=== PATIENT | male | born 1980 | race African-American/Black ===

== ENCOUNTER 2017-02-12 21:21 | Inpatient (IN) | payer SELFPAY ==
[~2017-02-12] VITALS: Ht 188 cm; Wt 84.0 kg
[~2017-02-12 21:21] MED LIST: NAPR550 PO; Z.0.NO CURRENT MEDS
[2017-02-12 21:26] VITALS: BP 163/103; PULSE 93; RESP 15; TEMP 97.3; O2SAT 96
--- NOTE | 2017-02-12 22:19 | PD ---
Physical Exam Date Seen by Provider: Feb 12, 2017 Time Seen by Provider: 22:17 Narrative 36 yo male here for left ankle and wrist pain after fall at football. Per patient pain is more severe on the left ankle and twisted. Trying to jump to get a ball fell and twisted ankle. No prior injuries. pain is 10/10. Cannot walk on it. Happened an hour ago. No other injuries. No head injury. Vitals sign stable. Patient awaiting bed placement. Data Data Last Documented VS Vital Signs Date Time Temp Pulse Resp B/P Pulse Ox O2 Delivery O2 Flow Rate FiO2 02/12/17 21:26 97.3 93 15 163/103 96 Room Air [facility] Medical Record Reviewed: Yes Supervised Visit with MARYCRUZ: No Scripts No Active Prescriptions or Reported Meds Donnie Streeter Feb 12, 2017 22:19
--- NOTE | 2017-02-12 22:52 | PD ---
HPI Chief Complaint: Fall Time Seen by Provider: 22:47 Travel History International Travel<30 days: No Contact w/Intl Traveler<30days: No Traveled to known affect area: No History of Present Illness HPI 36-year-old black male right-hand dominant presents emergency Department complains of left hand and ankle pain after an injury playing football this evening. He states that he has been drinking alcohol and was out playing with friends. He states that he jumped up for a ball but landed down on a rock twisting his left ankle causing him to fall onto his left hand. He states the pain is severe. Rates it a 10/10 and unable to bear weight. The patient denies any injury to his head, neck or back. No numbness or tingling. The injury occurred approximately one hour prior to arrival. [facility] Past Medical History Asthma: Yes Diabetes: Yes Patient Takes Glucophage: No Diminished Hearing: No Tetanus Vaccination: < 5 Years Past Surgical History Narrative Surgical Appendectomy Social History Alcohol Use: Yes (RARE) Tobacco Use: Yes (1/2PPD) Substance Use: Yes (MARIJUANA) Allergies-Medications (Allergen,Severity, Reaction): Coded Allergies: No Known Allergies (Verified , 02/12/17) Reported Meds & Prescriptions Reported Meds & Active Scripts Active No Active Prescriptions or Reported Medications Review of Systems Except as stated in HPI: all other systems reviewed are Neg General / Constitutional: No: Fever Eyes: No: Diploplia, Blurred Vision HENT: No: Headaches, Sore Throat, Neck Stiffness, Neck Pain Cardiovascular: No: Chest Pain or Discomfort, Palpitations Respiratory: No: Cough, Shortness of Breath Gastrointestinal: No: Nausea, Vomiting, Abdominal Pain Musculoskeletal: Positive: Arthralgias, Limited ROM, Edema, Pain Physical Exam Narrative GENERAL: Well-developed, well-nourished in no apparent distress. Nontoxic appearing. Smells of EtOH and appears intoxicated. HEAD: Normocephalic, atraumatic. EYES: Pupils equal round and reactive. Extraocular motions intact. No scleral icterus. No injection or drainage. ENT: Nose clear. Throat without erythema, tonsillar hypertrophy or exudate. Uvula midline. Airway patent. NECK: Trachea midline. Supple, nontender, moves head freely. No central bony tenderness or spasm. CARDIOVASCULAR: Regular rate and rhythm without murmurs, gallops, or rubs. RESPIRATORY: Clear to auscultation. Breath sounds equal bilaterally. No wheezes , rales, or rhonchi. GASTROINTESTINAL: Abdomen soft, non-tender, nondistended. No hepato-splenomegaly , or palpable masses. No guarding. EXTREMITIES: Examination of the right upper extremity is unremarkable. Examination of the left upper extremity reveals pain in the thenar eminence up into the thumb and index finger. There is no obvious deformity. He has good range of motion due to pain. He has intact gross sensation. There is no pain in the middle, ring and little finger. No pain in the wrist, elbow or shoulder. The right lower extremity is unremarkable. The left lower extremity reveals moderate swelling of the ankle with pain on both the medial lateral malleolus. No pain in the heel or Achilles. No pain in the forefoot or toes. He has intact sensation. The skin is intact.. BACK: Nontender without deformity. No flank tenderness. NEUROLOGICAL: Awake, alert and oriented x 3 .Cranial nerves grossly intact. Motor and sensory grossly within normal limits. Normal speech. Data Data Last Documented VS Vital Signs Date Time Temp Pulse Resp B/P Pulse Ox O2 Delivery O2 Flow Rate FiO2 02/12/17 21:26 97.3 93 15 163/103 96 Room Air Orders Ankle, Complete ([id number]) (02/12/17 22:44) Hand, Complete ([id number]) (02/12/17 22:44) Ice/Cold Pack (02/12/17 22:44) Iv Access Insert/Monitor (02/12/17 23:21) Sodium Chlor 0.9% 1000 Ml Inj (Ns 1000 M (02/12/17 23:30) Hydromorphone Pf Inj (Dilaudid Pf Inj) (02/12/17 23:30) Ondansetron Inj (Zofran Inj) (02/12/17 23:30) Ice/Cold Pack (02/12/17 23:21) Splint Or Brace Apply/Monitor (02/12/17 23:21) Complete Blood Count With Diff (02/12/17 23:35) Comprehensive Metabolic Panel (02/12/17 23:35) Prothrombin Time / Inr (Pt) (02/12/17 23:35) Act Partial Throm Time (Ptt) (02/12/17 23:35) Urinalysis - C+S If Indicated (02/12/17 23:35) Type And Screen (02/12/17 23:35) MDM Medical Decision Making Medical Screen Exam Complete: Yes Emergency Medical Condition: Yes Medical Record Reviewed: Yes Interpretation(s) Last 24 hours Impressions Hand X-Ray 02/12/172243 Signed Impressions: Service Date/Time: Sunday, February 12, 2017 23:01 - CONCLUSION: Intact left hand. Gregor Everett MD Ankle X-Ray 02/12/172243 Signed Impressions: Service Date/Time: Sunday, February 12, 2017 23:02 - CONCLUSION: Laterally displaced bimalleolar fractures and with lateral subluxation of the tibiotalar joint. Gregor Everett MD Differential Diagnosis MDM: High Differential diagnoses: Fracture, sprain, strain, dislocation, contusion, neurovascular injury Narrative Course IV access is obtained. Patient's given Dilaudid 1 mg IV, Zofran 4 mg IV. Patient is placed in a posterior sugar tong splint. The case has been discussed with Dr. ACHARYA who has agreed to admit the patient. We will consult Dr. De Anda The case has been discussed with Dr. De Anda. Diagnosis Primary Impression: left the malleolus fracture with widened mortise with distal fibula FX Additional Impression: left hand sprain Scripts No Active Prescriptions or Reported Meds Condition: Emanuel Krishnamurthy Feb 12, 2017 22:52
--- NOTE | 2017-02-12 23:08 | RADRPT ---
EXAM DATE/TIME: 02/12/2017 23:01 [facility] COMPARISON: No previous studies available for comparison. INDICATIONS : Patient was playing football and landed on left hand wrong. Pain through entire left hand. MEDICAL HISTORY : None. SURGICAL HISTORY : None. ENCOUNTER: Initial ACUITY: 1 day PAIN SCORE: 4/10 LOCATION: Left Hand FINDINGS: Three view examination of the left hand demonstrates no soft tissue swelling, dislocation, or fractur e. The carpal bones appear intact. The interphalangeal and metacarpophalangeal joints are intact. Bony mineralization is normal. CONCLUSION: Intact left hand. Gregor Everett MD on February 12, 2017 at 23:06 Board Certified Radiologist. This report was verified electronically.
--- NOTE | 2017-02-12 23:17 | RADRPT ---
EXAM DATE/TIME: 02/12/2017 23:02 [facility] COMPARISON: No previous studies available for comparison. INDICATIONS : Left ankle pain after fall playing football today MEDICAL HISTORY : None. SURGICAL HISTORY : None. ENCOUNTER: Initial ACUITY: 1 day PAIN SCORE: 10/10 LOCATION: Left entire ankle FINDINGS: There is a mildly comminuted, 3 mm laterally displaced fracture of the distal fibula approximately 2 cm above the level of the ankle joint. There is a fracture of the medial malleolus of the distal tibia with about 5 mm of lateral displaceme nt. The fracture is about 4 mm as well. The medial malleolus fracture fragment stays with t he talus. This results in lateral subluxation of the rest of the tibiotalar joint. CONCLUSION: Laterally displaced bimalleolar fractures and with lateral subluxation of the tibiotalar joint. Gregor Everett MD on February 12, 2017 at 23:14 Board Certified Radiologist. This report was verified electronically.
[2017-02-12] MEDS ORDERED: ONDANSETRON HCL 4 MG/2 ML VIAL IV PUSH ONE (23:30)
[2017-02-12] MEDS ORDERED: SODIUM CHLOR 0.9% 1000 ML INJ 1,000 ML IV ONE (23:30)
[2017-02-12] MEDS ORDERED: HYDROmorphone HCL PF 1 MG/ML VIAL IV PUSH ONE (23:30)
[2017-02-13] MEDS ORDERED: HYDROmorphone HCL PF 1 MG/ML VIAL IV PUSH ONE (02:30)
[2017-02-13 02:39] LABS: AUTOMATED NEUTROPHIL # 10.6 TH/MM3 (1.8-7.7); BASOPHIL # 0.1 TH/MM3 (0-0.2); BASOPHIL % 0.4 % (0.0-2.0); EOSINOPHIL % 0.3 % (0.0-4.0); LYMPH % 13.3 % (9.0-44.0); LYMPHOCYTE # 1.7 TH/MM3 (1.0-4.8); MEAN CORPUSCULAR HEMOGLOBIN 23.1 PG (27.0-34.0); MEAN CORPUSCULAR HGB CONC 32.5 % (32.0-36.0); MONO % 3.7 % (0.0-8.0); NEUT % 82.3 % (16.0-70.0); PLATELET COUNT 390 TH/MM3 (150-450); RED BLOOD COUNT 5.92 MIL/MM3 (4.50-5.90); RED CELL DISTRIBUTION WIDTH 16.3 % (11.6-17.2); WHITE BLOOD COUNT 12.9 TH/MM3 (4.0-11.0)
[2017-02-13 02:50] LABS: APTT (PATIENT) 25.1 SEC (24.3-30.1); PROTHROMBIN TIME - PATIENT 10.7 SEC (9.8-11.6)
[2017-02-13 02:52] LABS: HEMO FLAGS AUTO DIFF
[2017-02-13 02:57] LABS: BLOOD, URINE NEG (NEG); COMMENT (UR) CULT NOT INDICATED; CULTURE IF INDICATED CULT NOT INDICATED; GLUCOSE,URINE 300 mg/dL (NEG); KETONE, URINE TRACE mg/dL (NEG); MUCUS URINE FEW /lpf (OCC); NITRITE,URINE NEG (NEG); PH, URINE 5.5 (5.0-8.5); URINE COLOR YELLOW (YELLW/STRAW)
[2017-02-13 03:04] LABS: ALT (GPT) 43 U/L (12-78); ANION GAP 13 MEQ/L (5-15); AST (GOT) 29 U/L (15-37); BLOOD UREA NITROGEN 10 MG/DL (7-18); CHLORIDE 99 MEQ/L (98-107); GLOMERULAR FILTRATION RATE 86 ML/MIN (>89); POTASSIUM 3.4 MEQ/L (3.5-5.1); SODIUM (NA) 138 MEQ/L (136-145)
[2017-02-13 03:06] LABS: ALKALINE PHOSPHATASE 120 U/L (45-117); TOTAL BILIRUBIN ADULT 0.5 MG/DL (0.2-1.0)
[2017-02-13 03:25] LABS: PLATELET ESTIMATE SMEAR HIGH (NORMAL); PLATELET MORPHOLOGY ENLARGED (NORMAL); SCAN/DIFF AUTO DIFF CONFIRMED
[2017-02-13] MEDS ORDERED: POTASSIUM CHLORIDE 20 MEQ CONTROLLED RELEASE TAB PO ONE (03:30)
[2017-02-13] MEDS ORDERED: INSULIN HUMAN REGULAR 1,000 UNITS/10 ML VIAL SQ ONE (03:30)
[2017-02-13] MEDS ORDERED: GLUCAGON 1 MG/ML VIAL OTHER PRN (03:45)
[2017-02-13] MEDS ORDERED: DEXTROSE 50% IN WATER 50 ML VIAL(D50) IV PUSH PRN (03:45)
[2017-02-13] MEDS ORDERED: ACETAMINOPHEN 325 MG TAB PO PRN (03:45)
[2017-02-13] MEDS ORDERED: BISACODYL 10 MG SUPP RECTAL PRN (03:45)
[2017-02-13] MEDS ORDERED: ONDANSETRON HCL 4 MG/2 ML VIAL IVP PRN (03:45)
[2017-02-13] MEDS ORDERED: SODIUM CHLORIDE 0.9% FLUSH 10 ML FLUSH IV FLUSH PRN (03:45)
[2017-02-13] MEDS: SODIUM CHLOR 0.9% 1000 ML INJ 1,000 ML IV SCH ×2 (03:55→13:31)
[2017-02-13 03:59] VITALS: BP 142/80; PULSE 104; RESP 18; O2SAT 97
[2017-02-13 04:20] VITALS: BP 185/94; PULSE 105; RESP 21; TEMP 99.5; O2SAT 98
--- NOTE | 2017-02-13 04:47 | HHI.HP ---
[facility] Primary [facility] Physician No Primary Care Physician Admission Diagnosis medial malleolus fracture with widened mortise and distal fibular fr Diagnoses: (1) Ankle fracture Diagnosis: Principal (2) Leukocytosis Diagnosis: Principal (3) Dehydration Diagnosis: Principal (4) Hypokalemia Diagnosis: Principal (5) Hyperglycemia Diagnosis: Principal (6) Tobacco abuse Diagnosis: Principal Travel History International Travel<30 Days: No Contact w/Intl Traveler <30 Da: No Traveled to Known Affected Are: No History of Present Illness This is a 36-year-old male with a PMH of Asthma and DM who presented to the ER w / complaints of left ankle pain after playing football. Per pt he was playing football with friends, went to catch the ball and when he landed, rolled his left ankle. Unable to bare weight. No head trauma or LOC reported. On arrival , BP 163/103, HR 93, O2 sat 96% on RA, Afebrile. WBC 12.9. K+ 3.4. GFR 86. BS 241. INR 1.0. UA negative. Hand X-ray intact. Ankle X-ray laterally displaced bimalleolar fractures with lateral subluxation of the tibiotalar joint. Dr. Zarate consulted by ER physician, plan is for surgical intervention. Review of Systems Except as stated in HPI: all other systems reviewed are Neg ROS: 14 point review of systems otherwise negative. Past Family Social History Past Medical History PMH: Asthma and DM Past Surgical History PAST SURGICAL HISTORY: Appendectomy Allergies: Coded Allergies: No Known Allergies (Verified , 02/12/17) Family History PAST FAMILY HISTORY: Reviewed. No h/o DM or CAD Social History PAST SOCIAL HISTORY: Occasional alcohol. Smokes 1/2ppd. Positive for Marijuana. Physical Exam Vital Signs Vital Signs Date Time Temp Pulse Resp B/P Pulse Ox O2 Delivery O2 Flow Rate FiO2 02/13/17 03:59 104 18 142/80 97 Room Air 02/12/17 21:26 97.3 93 15 163/103 96 Room Air Physical Exam PE: GENERAL: Middle-aged male in no acute distress. HEENT: PERRLA, EOMI. No scleral icterus or conjunctival pallor. No lid lag or facial droop. CARDIOVASCULAR: Regular rate and rhythm. No obvious murmurs to auscultation. No chest tenderness to palpation. RESPIRATORY: No obvious rhonchi or wheezing. Clear to auscultation. Breath sounds equal bilaterally. GASTROINTESTINAL: Abdomen soft, non-tender, nondistended. BS normal. MUSCULOSKELETAL: Extremities without clubbing, cyanosis, or edema. No obvious deformities. Decreased ROM of LLE due to injury. NEUROLOGICAL: Awake, alert and oriented x4. No focal neurologic deficits. Moving both upper and lower extremities spontaneously. Laboratory Laboratory Tests Test 02/13/17 02/13/17 00:10 02:15 White Blood Count 12.9 Red Blood Count 5.92 Hemoglobin 13.6 Hematocrit 42.0 Mean Corpuscular Volume 71.0 Mean Corpuscular Hemoglobin 23.1 Mean Corpuscular Hemoglobin 32.5 Concent Red Cell Distribution Width 16.3 Platelet Count 390 Mean Platelet Volume 9.7 Neutrophils (%) (Auto) 82.3 Lymphocytes (%) (Auto) 13.3 Monocytes (%) (Auto) 3.7 Eosinophils (%) (Auto) 0.3 Basophils (%) (Auto) 0.4 Neutrophils # (Auto) 10.6 Lymphocytes # (Auto) 1.7 Monocytes # (Auto) 0.5 Eosinophils # (Auto) 0.0 Basophils # (Auto) 0.1 CBC Comment AUTO DIFF Differential Comment AUTO DIFF CONFIRMED Platelet Estimate HIGH Platelet Morphology Comment ENLARGED Prothrombin Time 10.7 Prothromb Time International 1.0 Ratio Activated Partial 25.1 Thromboplast Time Sodium Level 138 Potassium Level 3.4 Chloride Level 99 Carbon Dioxide Level 26.0 Anion Gap 13 Blood Urea Nitrogen 10 Creatinine 1.16 Estimat Glomerular Filtration 86 Rate Random Glucose 241 Calcium Level 9.6 Total Bilirubin 0.5 Aspartate Amino Transf 29 (AST/SGOT) Alanine Aminotransferase 43 (ALT/SGPT) Alkaline Phosphatase 120 Total Protein 8.5 Albumin 4.5 Blood Type O POSITIVE Antibody Screen NEGATIVE Blood Bank Comment Urine Color YELLOW Urine Turbidity CLEAR Urine pH 5.5 Urine Specific [place] 1.010 Urine Protein TRACE Urine Glucose (UA) 300 Urine Ketones TRACE Urine Occult Blood NEG Urine Nitrite NEG Urine Bilirubin NEG Urine Urobilinogen LESS THAN 2.0 Urine Leukocyte Esterase NEG Urine WBC 1 Urine Mucus FEW Microscopic Urinalysis Comment CULT NOT INDICATED Result Diagram: 02/13/17902/13/179 Assessment and Plan Problem List: (1) Ankle fracture ICD Code: S82.899A Status: Acute (2) Dehydration ICD Code: E86.0 Status: Acute (3) Hypokalemia ICD Code: E87.6 Status: Acute (4) Hyperglycemia ICD Code: R73.9 Status: Acute (5) Leukocytosis ICD Code: D72.829 Status: Acute (6) Tobacco abuse ICD Code: Z72.0 Status: Acute Assessment and Plan A/P: 1. Ankle Fx: s/p injury while playing football, Ankle X-ray w/ laterally displaced bimalleolar fracture with lateral subluxation of the tibiotalar joint , images reviewed by me. Dr. Zarate consulted by ER physician, plan is for surgical intervention. NPO, IVF, analgesics/antiemetics as needed. 2. Dehydration: GFR 86, previously 129 on 12/09/09. U/a negative, IVF for hydration, repeat labs in am. 3. Hypokalemia: K+ 3.4, recheck and replace as needed. 4. Hyperglycemia: BS 241. h/o DM. Sliding scale w/ Accu-Cheks, check Hgb A1c. 5. Leukocytosis: WBC 12.9. No signs of infection, afebrile. Likely secondary to acute injury. Repeat labs in am. 6. Tobacco Abuse: Pt counselled. NicoDerm prn if needed. 7. DVT Prophylaxis: Anticoagulation post op per Ortho 8. Social work for d/c planning as needed. 9. Case discussed w/ ER physician at length. Physician Certification 2 Midnight Certification Type: Admission for Inpatient Services Order for Inpatient Services The services are ordered in accordance with Medicare regulations or non- Medicare payer requirements, as applicable. In the case of services not specified as inpatient-only, they are appropriately provided as inpatient services in accordance with the 2-midnight benchmark. Estimated LOS (days): 2 days is the estimated time the patient will need to remain in the hospital, assuming treatment plan goals are met and no additional complications. Post-Hospital Plan: Not yet determined Johanny Edmonds MD Feb 13, 2017 04:47
[2017-02-13] MEDS: MORPHINE SULFATE 4 MG/ML INJ IV PRN ×5 (05:05→20:49)
[2017-02-13] MEDS: INSULIN ASPART SUPPLEMENTAL SCALE SQ SCH ×4 (06:48→20:49)
[2017-02-13] MEDS: ACETAMINOPHEN/HYDROcodone 325 MG/5 MG TAB PO PRN ×3 (06:48→23:27)
[2017-02-13 07:55] VITALS: BP 138/85; PULSE 86; RESP 18; TEMP 98.1; O2SAT 99
[2017-02-13] MEDS: SODIUM CHLORIDE 0.9% FLUSH 10 ML FLUSH IV FLUSH SCH ×2 (09:00→20:48)
[2017-02-13 11:57] VITALS: BP 130/76; PULSE 82; RESP 16; TEMP 97; O2SAT 99
[2017-02-13] MEDS: KETOROLAC TROMETHAMINE 30 MG/ML (IVP) VIAL IVP SCH (14:29)
[2017-02-13 16:50] VITALS: BP 129/78; PULSE 80; RESP 18; TEMP 97.6; O2SAT 97
--- NOTE | 2017-02-13 18:42 | PD.CONS ---
cc: Froilan Zarate Jr., MD HPI Service [facility] Consult Requested By Primary Care Physician No Primary Care Physician Admission Diagnosis medial malleolus fracture with widened mortise and distal fibular fr Diagnoses: (1) Ankle fracture (2) Dehydration (3) Hypokalemia (4) Hyperglycemia (5) Leukocytosis (6) Tobacco abuse History of Present Illness 36-year-old male with a PMH of Asthma and DM who presented to the ER w/ complaints of left ankle pain s/p football injury. Per pt he was playing football with friends, went to catch the ball and when he landed, rolled his left ankle. X-ray taken the emergency department reveal displaced left ankle fracture. Denies any head injuries. Denies loss of consciousness. Currently patient's pain is 3 out of 10, exacerbated by any range of motion, WB, relieved at rest and with IV pain medicine, pain is sharp nonradiating, not associated with any paresthesia and numbness to the lower extremity. he denies any chest pain or shortness of breath. Review of Systems Except as stated in HPI: all other systems reviewed are Neg ROS: 14 point review of systems otherwise negative. Past Family Social History Past Medical History PMH: Asthma and DM Past Surgical History PAST SURGICAL HISTORY: Appendectomy Allergies: Coded Allergies: No Known Allergies (Verified , 02/12/17) Family History PAST FAMILY HISTORY: Reviewed. No h/o DM or CAD Social History PAST SOCIAL HISTORY: Occasional alcohol. Smokes 1/2ppd. Positive for Marijuana. Review of Systems Endocrine: DENIES: Heat/cold intolerance, Polydipsia, Polyuria, Polyphagia Eyes: DENIES: Blurred vision, Diplopia, Eye inflammation, Eye pain, Vision loss , Photosensitivity, Double Vision Ears, nose, mouth, throat: DENIES: Tinnitus, Hearing loss, Vertigo, Nasal discharge, Oral lesions, Throat pain, Hoarseness, Ear Pain, Running Nose, Epistaxis, Sinus Pain, Toothache, Odynophagia Respiratory: DENIES: Apneas, Cough, Snoring, Wheezing, Hemoptysis, Sputum production, Shortness of breath Cardiovascular: DENIES: Chest pain, Palpitations, Syncope, Dyspnea on Exertion , PND, Lower Extremity Edema, Orthopnea, Claudication Gastrointestinal: DENIES: Abdominal pain, Black stools, Bloody stools, Constipation, Diarrhea, Nausea, Vomiting, Difficulty Swallowing, Anorexia Past Family Social History Past Medical History PMH: Asthma and DM Past Surgical History PAST SURGICAL HISTORY: Appendectomy Allergies: Coded Allergies: No Known Allergies (Verified , 02/12/17) Active Ordered Medications Current Medications Medications (Trade) Dose Ordered Sig/Kofi Route Start Time Stop Time Status Last Admin (D50w (Vial) Inj) 25 ml UNSCH PRN IV PUSH 02/13/17 03:45 Glucagon 1 mg 1 mg UNSCH PRN OTHER 02/13/17 03:45 (NS 1000 ml Inj) 1,000 ml @ 100 mls/hr Q10H IV 02/13/17 03:31 02/13/17 13:31 (NS Flush) 2 ml UNSCH PRN IV FLUSH 02/13/17 03:45 (NS Flush) 2 ml BID IV FLUSH 02/13/17 09:00 (Zofran Inj) 4 mg Q6H PRN IVP 02/13/17 03:45 (Dulcolax Supp) 10 mg DAILY PRN RECTAL 02/13/17 03:45 (Tylenol) 650 mg Q6H PRN PO 02/13/17 03:45 (Tina 5-325 Mg) 1 tab Q4H PRN PO 02/13/17 03:45 02/13/17 16:14 (Morphine Inj) 2 mg Q3H PRN IV 02/13/17 03:45 02/13/17 17:29 Reported Meds & Active Scripts Active No Active Prescriptions or Reported Medications Family History PAST FAMILY HISTORY: Reviewed. No h/o DM or CAD Social History PAST SOCIAL HISTORY: Occasional alcohol. Smokes 1/2ppd. Positive for Marijuana. Physical Exam Vital Signs Vital Signs Date Time Temp Pulse Resp B/P Pulse Ox O2 Delivery O2 Flow Rate FiO2 02/13/17 16:50 97.6 80 18 129/78 97 02/13/17 11:57 97.0 82 16 130/76 99 02/13/17 07:55 98.1 86 18 138/85 99 02/13/17 04:20 99.5 105 21 185/94 98 4/29/17 04:13 Room Air 02/13/17 03:59 104 18 142/80 97 Room Air 02/12/17 21:26 97.3 93 15 163/103 96 Room Air Physical Exam Alert awake and oriented -3. No acute distress. Pulmonary: Normal respiratory effort. Left lower extremity: Splint in place. Grossly Neurovascularly intact, +EHL/ FHL + PT/DP pulses. Supple compartments. Negative Homans sign. Right lower extremity: neurovascularly intact. No deformities. Negative Homans. Laboratory Laboratory Tests Test 02/13/17 02/13/17 00:10 02:15 White Blood Count 12.9 Red Blood Count 5.92 Hemoglobin 13.6 Hematocrit 42.0 Mean Corpuscular Volume 71.0 Mean Corpuscular Hemoglobin 23.1 Mean Corpuscular Hemoglobin 32.5 Concent Red Cell Distribution Width 16.3 Platelet Count 390 Mean Platelet Volume 9.7 Neutrophils (%) (Auto) 82.3 Lymphocytes (%) (Auto) 13.3 Monocytes (%) (Auto) 3.7 Eosinophils (%) (Auto) 0.3 Basophils (%) (Auto) 0.4 Neutrophils # (Auto) 10.6 Lymphocytes # (Auto) 1.7 Monocytes # (Auto) 0.5 Eosinophils # (Auto) 0.0 Basophils # (Auto) 0.1 CBC Comment AUTO DIFF Differential Comment AUTO DIFF CONFIRMED Platelet Estimate HIGH Platelet Morphology Comment ENLARGED Prothrombin Time 10.7 Prothromb Time International 1.0 Ratio Activated Partial 25.1 Thromboplast Time Sodium Level 138 Potassium Level 3.4 Chloride Level 99 Carbon Dioxide Level 26.0 Anion Gap 13 Blood Urea Nitrogen 10 Creatinine 1.16 Estimat Glomerular Filtration 86 Rate Random Glucose 241 Calcium Level 9.6 Total Bilirubin 0.5 Aspartate Amino Transf 29 (AST/SGOT) Alanine Aminotransferase 43 (ALT/SGPT) Alkaline Phosphatase 120 Total Protein 8.5 Albumin 4.5 Blood Type O POSITIVE Antibody Screen NEGATIVE Blood Bank Comment Urine Color YELLOW Urine Turbidity CLEAR Urine pH 5.5 Urine Specific [place] 1.010 Urine Protein TRACE Urine Glucose (UA) 300 Urine Ketones TRACE Urine Occult Blood NEG Urine Nitrite NEG Urine Bilirubin NEG Urine Urobilinogen LESS THAN 2.0 Urine Leukocyte Esterase NEG Urine WBC 1 Urine Mucus FEW Microscopic Urinalysis Comment CULT NOT INDICATED Result Diagram: 02/13/17 0010 02/13/17 0010 Imaging Last 72 hours Impressions Hand X-Ray 02/12/172243 Signed Impressions: Service Date/Time: Sunday, February 12, 2017 23:01 - CONCLUSION: Intact left hand. Gregor Everett MD Ankle X-Ray 02/12/172243 Signed Impressions: Service Date/Time: Sunday, February 12, 2017 23:02 - CONCLUSION: Laterally displaced bimalleolar fractures and with lateral subluxation of the tibiotalar joint. Gregor Everett MD Assessment & Plan Assessment and Plan 36-year-old male status post fall while playing football sustaining a closed left displaced bimalleolar ankle fracture. This fracture is unstable and requires open reduction internal fixation. Risk, benefits and alternative of treatment plan were explained to the patient. All questions were answered. He agrees and understands our recommendations. Postoperative plan also discussed. Nothing by mouth OR tomorrow Froilan Zarate Jr., MD Feb 13, 2017 18:42
[2017-02-13 20:00] VITALS: BP 154/98; PULSE 79; RESP 18; TEMP 97; O2SAT 99
[2017-02-14] VITALS: BP 162/99; PULSE 85; RESP 17; TEMP 97.8; O2SAT 98
[2017-02-14] MEDS: MORPHINE SULFATE 4 MG/ML INJ IV PRN ×4 (00:33→21:02)
[2017-02-14] MEDS: SODIUM CHLOR 0.9% 1000 ML INJ 1,000 ML IV SCH (00:34)
[2017-02-14 04:00] VITALS: BP 159/97; PULSE 75; RESP 18; TEMP 97.4; O2SAT 99
[2017-02-14 05:48] LABS: AUTOMATED NEUTROPHIL # 3.3 TH/MM3 (1.8-7.7); BASOPHIL % 0.6 % (0.0-2.0); EOSINOPHIL # 0.1 TH/MM3 (0-0.4); HEMATOCRIT 39.1 % (39.0-51.0); LYMPH % 41.5 % (9.0-44.0); LYMPHOCYTE # 2.9 TH/MM3 (1.0-4.8); MEAN CELL VOLUME 71.4 FL (80.0-100.0); MEAN CORPUSCULAR HEMOGLOBIN 22.6 PG (27.0-34.0); MEAN CORPUSCULAR HGB CONC 31.6 % (32.0-36.0); NEUT % 47.9 % (16.0-70.0); PLATELET COUNT 305 TH/MM3 (150-450); RED BLOOD COUNT 5.48 MIL/MM3 (4.50-5.90); RED CELL DISTRIBUTION WIDTH 16.1 % (11.6-17.2)
[2017-02-14 05:57] LABS: HEMO FLAGS AUTO DIFF
[2017-02-14] MEDS: ACETAMINOPHEN/HYDROcodone 325 MG/5 MG TAB PO PRN (05:58)
[2017-02-14 06:27] LABS: ALKALINE PHOSPHATASE 118 U/L (45-117); ALT (GPT) 28 U/L (12-78); ANION GAP 7 MEQ/L (5-15); AST (GOT) 17 U/L (15-37); BICARBONATE 27.5 MEQ/L (21.0-32.0); BLOOD UREA NITROGEN 5 MG/DL (7-18); CHLORIDE 106 MEQ/L (98-107); GLOMERULAR FILTRATION RATE 123 ML/MIN (>89); POTASSIUM 3.5 MEQ/L (3.5-5.1); SODIUM (NA) 140 MEQ/L (136-145); TOTAL BILIRUBIN ADULT 0.4 MG/DL (0.2-1.0)
[2017-02-14] MEDS: INSULIN ASPART SUPPLEMENTAL SCALE SQ SCH ×3 (06:46→21:00)
[2017-02-14 07:36] VITALS: BP_SYST 113; BP_SYST 152; BP_DIAS 100; BP_DIAS 63; PULSE 53; PULSE 74; RESP 18; TEMP 97.7; TEMP 98.1; O2SAT 100; O2SAT 98
[2017-02-14] MEDS: SODIUM CHLORIDE 0.9% FLUSH 10 ML FLUSH IV FLUSH SCH ×3 (07:41→21:00)
[2017-02-14] MEDS ORDERED: LACTATED RINGER'S 1000 ML IV PRN (08:30)
[2017-02-14] MEDS ORDERED: CHLORHEXIDINE GLUCONATE 2 % 1 PACK (2 CLOTHS) TOPICAL PRN (08:30)
[2017-02-14] MEDS ORDERED: POVIDONE IODINE 5% (ANTISEPSIS KIT) 4 APPLICATIONS EACH NARE PRN (08:30)
[2017-02-14] MEDS ORDERED: SODIUM CHLORID 0.9% 500 ML IV PRN (08:30)
[2017-02-14] MEDS ORDERED: INSULIN HUMAN REGULAR 1,000 UNITS/10 ML VIAL SQ PRN (08:30)
[2017-02-14] MEDS ORDERED: METOPROLOL TARTRATE 25 MG TAB PO PRN (08:30)
[2017-02-14] MEDS ORDERED: ceFAZolin INJ 1,000 MG VIAL ONE (08:49)
[2017-02-14] MEDS ORDERED: GENTAMICIN SULFATE 80 MG/2 ML VIAL ONE (08:49)
[2017-02-14] MEDS ORDERED: VANCOMYCIN HCL 1000 MG VIAL ONE (08:49)
[2017-02-14] MEDS ORDERED: PROPOFOL 200 MG/20 ML AMP IV ONE (10:30)
[2017-02-14] MEDS ORDERED: NEOSTIGMINE 3 MG/3 ML SYR IV ONE (10:31)
[2017-02-14] MEDS ORDERED: LACTATED RINGER'S 1000 ML INJ 1,000 ML IV ONE (10:31)
[2017-02-14] MEDS ORDERED: ONDANSETRON HCL 4 MG/2 ML VIAL IV PUSH ONE (10:31)
[2017-02-14] MEDS ORDERED: PERC5TAB12 PO (10:32)
[2017-02-14 10:55] LABS: SCAN/DIFF AUTO DIFF CONFIRMED
[2017-02-14 10:55] LABS: HEMOGLOBIN A1a 2.1 %; HEMOGLOBIN A1b 1.3 %; HEMOGLOBIN Ao 73.6 %; HEMOGLOBIN F 3.9 %; HEMOGLOBIN LA1C 2.6 %; HEMOGLOBIN P3 4.8 %
[2017-02-14] MEDS ORDERED: fentaNYL CITRATE 250 MCG/5 ML AMP ONE (11:06)
[2017-02-14] MEDS ORDERED: MORPHINE SULFATE 4 MG/ML INJ ONE (11:06)
[2017-02-14] MEDS ORDERED: MIDAZOLAM HCL 2 MG/2 ML VIAL ONE (11:06)
[2017-02-14] MEDS ORDERED: ACETAMINOPHEN 1000 MG/100 ML VIAL IV ONE (11:13)
[2017-02-14 11:25] VITALS: BP 166/90; PULSE 78; RESP 19; TEMP 97; O2SAT 99
[2017-02-14] MEDS ORDERED: PROMETHAZINE HCL 25 MG TAB PO PRN (12:00)
[2017-02-14] MEDS ORDERED: SODIUM CHLORIDE 0.9% FLUSH 10 ML FLUSH IV FLUSH PRN (12:00)
[2017-02-14] MEDS ORDERED: ZOLPIDEM TARTRATE 5 MG TAB PO PRN (12:00)
[2017-02-14] MEDS ORDERED: Post-op Orders (for Pharmacy) MISC XX ONE (12:00)
[2017-02-14] MEDS ORDERED: MORPHINE SULFATE 8 MG/ML INJ IV PUSH PRN (12:00)
[2017-02-14] MEDS ORDERED: oxyCODONE/ACETAMINOPHEN 5 MG/325 MG TAB PO PRN (12:00)
--- NOTE | 2017-02-14 13:19 | PD.OP ---
cc: Froilan Zarate Jr., MD Operative Report Date of Surgery: Feb 14, 2017 Preoperative Diagnosis: Left bimalleolar ankle fracture Postoperative Diagnosis: Same Procedure: Open reduction internal fixation left ankle bimalleolar fracture Anesthesia: Gen. Surgeon: Froilan Zarate Paper Plate Machine Tender(s): Staff Resident Surgeon: None Operation and Findings: Informed consent obtained, operative site was marked. The foot and ankle were seen and evaluated this morning. Soft tissue swelling had significantly improved and appeared to be ready for surgery. He was brought to the operating room and placed on the operating room table. He was given intravenous sedation, general endotracheal anesthesia. He received IV antibiotics and was placed in the lateral decubitus position. Foot and leg were prepped with alcohol, followed by Hibiclens, draped in usual sterile fashion. A time out procedure was preformed. The procedure began with a five inch incision over the lateral aspect fibula. A full thickness flap was carefully elevated. The fracture was identified , periosteum was elevated at the fracture site. Attention was now turned to expose the distal end of the fibula and as much proximal as necessary to allow reduction and plate position. Attention was turned to the syndesmosis and under direct visualization the syndesmotic area was cleaned of any debris and irrigated. There was significant comminution with a very long longitudinal split in the main fragment extending quite proximal in the fibula. The 2 large fragments were reduced and fixed with lag screw fixation. The rest of the fibula fracture was bridged with a long one third tubular plate. Reduction was confirmed under fluoroscopy. An anterior medial incision was made at the level of the medial malleolus. A full-thickness flap was carefully elevated. The medial malleolus piece was slightly move out delayed to allow direct visualization of the medial clear space which was thoroughly irrigated and cleared of any debris. The medial malleolus was reduced using pointed reduction clamp and reduction was provisionally maintained with a K wire before drilling the proximal cortex for Leksell fixation. Lag screw was placed in the medial malleolus and a second parallel lag screw just posterior to the first. This second screw was necessary to provide rotational control. Using fluoroscopy, the syndesmosis was stressed in the mortise view with the cotton test and external rotation stress test. The syndesmosis was found to be stable. Multiplanar fluoroscopy confirmed well-aligned fracture. Final fluoroscopy was used to confirm a well-aligned fracture with well-placed hardware. Incision was thoroughly irrigated. Tourniquet was released. Hemostasis was confirmed. Fascia layer was closed 2-0 Vicryl, the skin and subcutaneous tissue closed with 2-0 nylon, in vertical mattress fashion. Sterile dressings were applied the patient was placed into a well molded padded splint. The patient was transferred to the Recovery Room in stable condition. POSTP-OP PLAN OF ACTIVITY Antibiotics: Ancef, vancomycin Antiocoagulation: Lovenox Weight bearing status: NWB Dressing: Do not remove splints/cast. Dispo: expected discharge when pain is controlled. Okay to discharge from orthopedic standpoint today Froilan Zarate Jr., MD Feb 14, 2017 13:19 Dressing: Change daily, by RN starting postop day 3. Silverlon (If present) stays in place until postoperative visit. Do not remove splints/cast. Pin site care qday (when present) Future procedure planned: [] Dispo: expected discharge 2-3 days. Froilan Zarate Jr., MD Feb 14, 2017 13:19
--- NOTE | 2017-02-14 13:58 | RADRPT ---
EXAM DATE/TIME: 02/14/2017 12:59 [facility] COMPARISON: ANKLE LEFT COMPLETE ([id number]), February 12, 2017, 23:02. INDICATIONS : Hardware placement left ankle MEDICAL HISTORY : None. SURGICAL HISTORY : None. ENCOUNTER: Subsequent ACUITY: 3 days PAIN SCORE: Non-responsive. LOCATION: Left Ankle FINDINGS: 4 intraoperative spot images of the ankle. 2 obliquely oriented cannulated screws in the medial malle olus. Lateral fibular internal fixation plate and multiple transfixing screws. Alignment is near-jayshree omic. CONCLUSION: Intraoperative spot images showing distal tibia and fibula hardware. Prabhjot Franklin MD on February 14, 2017 at 13:54 Board Certified Radiologist. This report was verified electronically.
[2017-02-14] MEDS ORDERED: *morphine SULFATE 8 MG/ML PERIprocedure ONLY ONE ×2 (14:11→14:21)
[2017-02-14] MEDS ORDERED: DO NOT ADM ANY ANTICOAGULANT DRUGS PRN (14:30)
[2017-02-14] MEDS ORDERED: *MEPERIDINE 25 MG INJ VIAL PERIprocedural Use ONLY ONE (14:30)
[2017-02-14 15:43] VITALS: BP 177/110; PULSE 94; RESP 19; TEMP 97.2; O2SAT 100
[2017-02-14] MEDS: cloNIDine HCL 0.1 MG TAB PO PRN (17:25)
[2017-02-14] MEDS ORDERED: ENALAPRILAT 1.25 MG/ML VIAL IV PUSH PRN (19:30)
[2017-02-14 20:00] VITALS: BP 142/87; PULSE 90; RESP 18; TEMP 97.4; O2SAT 99
[2017-02-14] MEDS: KETOROLAC TROMETHAMINE 30 MG/ML (IVP) VIAL IVP SCH (20:04)
--- NOTE | 2017-02-14 23:28 | HHI.PR ---
Subjective Remarks patient seen this afternoon after surgery. Reports the pain is controlled. Denies any chest pain or shortness of breath. Objective Vital Signs Date Time Temp Pulse Resp B/P Pulse Ox O2 Delivery O2 Flow Rate FiO2 02/14/17 20:00 97.4 90 18 142/87 99 02/14/17 15:43 97.2 94 19 177/110 100 02/14/17 14:45 91 19 149/84 100 Nasal Cannula 2 02/14/17 14:30 96 19 156/91 100 Nasal Cannula 2 02/14/17 14:15 101 19 162/90 100 Nasal Cannula 2 02/14/17 14:04 98.4 99 19 131/85 100 Nasal Cannula 2 02/14/17 11:25 97.0 78 19 166/90 99 02/14/17 07:36 98.1 74 18 152/100 100 02/14/17 04:00 97.4 75 18 159/97 99 02/14/17 00:00 97.8 85 17 162/99 98 I/O 02/13/17 02/13/17 02/13/17 02/14/17 02/14/17 02/14/17 07:00 15:00 23:00 07:00 15:00 23:00 Intake Total 1568 ml 726 ml 1200 ml Output Total 650 ml 450 ml Balance 1568 ml 76 ml 750 ml Intake Oral 240 ml 0 ml 0 ml IV Total 1328 ml 726 ml 100 ml Other 1100 ml Output Urine Total 650 ml 400 ml Estimated Blood Loss 50 ml Other 0 ml # Voids 1 # Bowel Movements 0 0 0 Result Diagram: 02/14/17 0504 02/14/17 0504 Objective Remarks GENERAL: patient lying in bed after surgery. Appears comfortable. SKIN: Warm and dry. HEAD: Normocephalic. EYES: No scleral icterus. No injection or drainage. NECK: Supple, trachea midline. No JVD. CARDIOVASCULAR: Regular rate and rhythm without murmurs, gallops, or rubs. RESPIRATORY: Breath sounds equal bilaterally. No accessory muscle use. GASTROINTESTINAL: Abdomen soft, non-tender, nondistended. MUSCULOSKELETAL: No cyanosis, or edema. peripheral perfusion intact. BACK: Nontender without obvious deformity. No CVA tenderness. A/P Assessment and Plan //postop ORIF for leftAnkle Fx: - s/p injury while playing football, Ankle X-ray w/ laterally displaced bimalleolar fracture with lateral subluxation of the tibiotalar joint, images reviewed by me. Dr. Zarate consulted by ER physician, plan is for surgical intervention. NPO, IVF, analgesics/antiemetics as needed. //Hypokalemia: Resolved after replacement. Monitor. //diabetes mellitus. Hemoglobin A1c 11.6. //Hyperglycemia: BS 241. h/o DM. Sliding scale w/ Accu-Cheks, check Hgb A1c. -Diabetic diet. hospice educator. Insulin sliding scale. - Continue to monitor blood glucose. //Leukocytosis: WBC 12.9. No signs of infection, afebrile. Likely secondary to acute injury. Repeat labs in am. //Tobacco Abuse: Pt counselled. NicoDerm prn if needed. //DVT Prophylaxis: Anticoagulation post op per Ortho Discharge Planning likely discharge home tomorrow Pankaj Borja MD Feb 14, 2017 23:28
[2017-02-14] MEDS: oxyCODONE/ACETAMINOPHEN 5 MG/325 MG TAB PO PRN (23:43)
[2017-02-15] VITALS: BP 146/83; PULSE 88; RESP 17; TEMP 98.2; O2SAT 100
[2017-02-15] MEDS: ENOXAPARIN SODIUM 30 MG/0.3 ML SYRINGE SQ SCH ×2 (01:54→13:12)
[2017-02-15] MEDS: KETOROLAC TROMETHAMINE 30 MG/ML (IVP) VIAL IVP SCH ×4 (01:54→16:18)
[2017-02-15 04:00] VITALS: BP 137/93; PULSE 73; RESP 17; TEMP 97.6; O2SAT 98
[2017-02-15] MEDS: oxyCODONE/ACETAMINOPHEN 5 MG/325 MG TAB PO PRN ×5 (04:45→20:48)
[2017-02-15] MEDS: INSULIN ASPART SUPPLEMENTAL SCALE SQ SCH ×8 (06:26→20:48)
[2017-02-15] MEDS: SODIUM CHLORIDE 0.9% FLUSH 10 ML FLUSH IV FLUSH SCH ×4 (06:41→20:52)
[2017-02-15 07:33] LABS: HEMATOCRIT 36.1 % (39.0-51.0); MEAN CELL VOLUME 71.3 FL (80.0-100.0); MEAN CORPUSCULAR HEMOGLOBIN 22.2 PG (27.0-34.0); MEAN CORPUSCULAR HGB CONC 31.2 % (32.0-36.0); PLATELET COUNT 306 TH/MM3 (150-450); RED BLOOD COUNT 5.07 MIL/MM3 (4.50-5.90); RED CELL DISTRIBUTION WIDTH 16.1 % (11.6-17.2); WHITE BLOOD COUNT 11.8 TH/MM3 (4.0-11.0)
[2017-02-15 07:45] LABS: HEMO FLAGS AUTO DIFF
[2017-02-15 08:00] VITALS: BP 145/100; PULSE 82; RESP 18; TEMP 98.6; O2SAT 100
[2017-02-15 08:12] LABS: BICARBONATE 25.6 MEQ/L (21.0-32.0); MAGNESIUM 2.3 MG/DL (1.5-2.5); POTASSIUM 3.6 MEQ/L (3.5-5.1)
[2017-02-15 08:21] LABS: BANDS 3 % (0-6); EOSINOPHILS 1 % (0-4); NEUTROPHIL # MANUAL DIFF 8.9 TH/MM3 (1.8-7.7); POLYS (SEG NEUTROPHILS) 72 % (16-70); WBC DIFF SAMPLE 100
[2017-02-15 08:22] LABS: PLATELET ESTIMATE SMEAR NORMAL (NORMAL); PLATELET MORPHOLOGY NORMAL (NORMAL); SCAN/DIFF FINAL DIFF MANUAL
[2017-02-15 10:48] VITALS: BP 160/105; PULSE 86; RESP 18; TEMP 97; O2SAT 100
[2017-02-15] MEDS: cloNIDine HCL 0.1 MG TAB PO PRN (10:52)
[2017-02-15] MEDS ORDERED: LEVEMIR SQ (12:12)
[2017-02-15] MEDS ORDERED: GLUCKIT15 (12:12)
[2017-02-15] MEDS ORDERED: LANCETS1 MI1 (12:12)
[2017-02-15] MEDS ORDERED: GLUCTES12 (12:12)
[2017-02-15] MEDS ORDERED: NOVOLOGP2 SQ (12:12)
[2017-02-15] MEDS ORDERED: INSU1MIS15 (12:12)
[2017-02-15] MEDS ORDERED: INSULIN DETEMIR 100 UNITS/ML VIAL SQ SCH (12:15)
--- NOTE | 2017-02-15 12:17 | HHI.PR ---
Subjective Remarks pt says he is feeling alright. no cp sob. no n/v. fam members with DM. has had polyuria for about a year. Objective Vital Signs Date Time Temp Pulse Resp B/P Pulse Ox O2 Delivery O2 Flow Rate FiO2 02/15/17 10:48 97.0 86 18 160/105 100 02/15/17 08:00 98.6 82 18 145/100 100 02/15/17 04:00 97.6 73 17 137/93 98 02/15/17 00:00 98.2 88 17 146/83 100 02/14/17 20:00 99 Room Air 02/14/17 20:00 97.4 90 18 142/87 99 02/14/17 15:43 97.2 94 19 177/110 100 02/14/17 14:45 91 19 149/84 100 Nasal Cannula 2 02/14/17 14:30 96 19 156/91 100 Nasal Cannula 2 02/14/17 14:15 101 19 162/90 100 Nasal Cannula 2 02/14/17 14:04 98.4 99 19 131/85 100 Nasal Cannula 2 I/O 02/14/17 02/14/17 02/14/17 02/15/17 02/15/17 02/15/17 07:00 15:00 23:00 07:00 15:00 23:00 Intake Total 726 ml 1200 ml 819 ml 685 ml Output Total 650 ml 450 ml 1600 ml 600 ml Balance 76 ml 750 ml -781 ml 85 ml Intake Oral 0 ml 0 ml 480 ml 240 ml IV Total 726 ml 100 ml 339 ml 445 ml Other 1100 ml Output Urine Total 650 ml 400 ml 1600 ml 600 ml Estimated Blood Loss 50 ml Other 0 ml # Bowel Movements 0 0 0 0 Result Diagram: 02/15/17 0555 02/15/17 0555 Objective Remarks GENERAL: patient lying in bed. NAD. Appears comfortable. AAOx3 SKIN: Warm and dry. HEAD: Normocephalic. EYES: No scleral icterus. No injection or drainage. NECK: Supple, trachea midline. No JVD. CARDIOVASCULAR: Regular rate and rhythm without murmurs, gallops, or rubs. RESPIRATORY: Breath sounds equal bilaterally. No accessory muscle use. GASTROINTESTINAL: Abdomen soft, non-tender, nondistended. MUSCULOSKELETAL: No cyanosis, or edema. peripheral perfusion intact. BACK: Nontender without obvious deformity. No CVA tenderness. A/P Assessment and Plan //postop ORIF 02/14 for leftAnkle Fx: - s/p injury while playing football, Ankle X-ray w/ laterally displaced bimalleolar fracture with lateral subluxation of the tibiotalar joint, images reviewed by me. Dr. Zarate consulted by ER physician, plan is for surgical intervention. NPO, IVF, analgesics/antiemetics as needed. -f/u ortho as outpt. //Hypokalemia: Resolved after replacement. Monitor. //diabetes mellitus. Hemoglobin A1c 11.6. //Hyperglycemia: BS 241. h/o DM. Sliding scale w/ Accu-Cheks, check Hgb A1c. -Diabetic diet. await biochemist. Insulin sliding scale. -c/s cm for home DM supplies, f/u PCP. - Continue to monitor blood glucose. //Leukocytosis: WBC 12.9. No signs of infection, afebrile. Likely secondary to acute injury. improving. no sogns of infection.. //Tobacco Abuse: Pt counselled. NicoDerm prn if needed. //DVT Prophylaxis: Anticoagulation post op per Ortho Discharge Planning Blood sugars still elevated, need to keep for better post-surgical control, education, as pt will need to go home on insulin Pankaj Borja MD February 15, 2017 12:17
--- NOTE | 2017-02-15 15:12 | PD.ORT.PN ---
Objective Vitals Vital Signs Date Time Temp Pulse Resp B/P Pulse Ox O2 Delivery O2 Flow Rate FiO2 02/15/17 10:48 97.0 86 18 160/105 100 02/15/17 08:00 98.6 82 18 145/100 100 02/15/17 04:00 97.6 73 17 137/93 98 02/15/17 00:00 98.2 88 17 146/83 100 02/14/17 20:00 99 Room Air 02/14/17 20:00 97.4 90 18 142/87 99 02/14/17 15:43 97.2 94 19 177/110 100 I/O 02/14/17 02/14/17 02/14/17 02/15/17 02/15/17 02/15/17 07:00 15:00 23:00 07:00 15:00 23:00 Intake Total 726 ml 1200 ml 819 ml 685 ml Output Total 650 ml 450 ml 1600 ml 600 ml Balance 76 ml 750 ml -781 ml 85 ml Intake Oral 0 ml 0 ml 480 ml 240 ml IV Total 726 ml 100 ml 339 ml 445 ml Other 1100 ml Output Urine Total 650 ml 400 ml 1600 ml 600 ml Estimated Blood Loss 50 ml Other 0 ml # Bowel Movements 0 0 0 0 Result Diagram: 02/15/17 0555 02/15/17 0555 Assessment & Plan Assessment and Plan POD #1left ankle reduction internal fixation Doing well, expected postop pain, no complaints. DVT prophylaxis, Lovenox Weightbearing status: None Dressing change: Do not remove splint Dispo: Stable and okay to discharge from orthopedic standpoint. Follow-up: 2 weeks, Dr. Zarate[facility] Froilan Stock Jr., MD February 15, 2017 15:12
[2017-02-15 16:22] VITALS: BP 146/99; PULSE 77; RESP 18; TEMP 96.4; O2SAT 100
[2017-02-15 20:00] VITALS: BP 142/92; PULSE 82; RESP 18; TEMP 97.6; O2SAT 99
[2017-02-15] MEDS: MAGNESIUM HYDROXIDE SUSP 30 ML CUP PO SCH (20:47)
[2017-02-15] MEDS: BISACODYL EC 5 MG TABEC PO SCH (20:47)
[2017-02-15] MEDS: DOCUSATE SODIUM 100 MG CAP PO SCH (20:47)
[2017-02-15] MEDS: POLYETHYLENE GLYCOL 17 GM PKG PO SCH (20:47)
[2017-02-16] VITALS: BP 159/87; PULSE 78; RESP 17; TEMP 98.3; O2SAT 99
[2017-02-16] MEDS: ENOXAPARIN SODIUM 30 MG/0.3 ML SYRINGE SQ SCH (01:01)
[2017-02-16] MEDS: KETOROLAC TROMETHAMINE 30 MG/ML (IVP) VIAL IVP SCH ×2 (01:01→05:17)
[2017-02-16] MEDS: oxyCODONE/ACETAMINOPHEN 5 MG/325 MG TAB PO PRN ×3 (01:02→11:18)
[2017-02-16] MEDS: MAGNESIUM HYDROXIDE SUSP 30 ML CUP PO SCH ×2 (01:02→11:16)
[2017-02-16] MEDS: INSULIN ASPART SUPPLEMENTAL SCALE SQ SCH ×4 (05:08→11:31)
[2017-02-16 07:32] VITALS: BP 130/97; PULSE 66; RESP 17; TEMP 97; O2SAT 99
[2017-02-16] MEDS: SODIUM CHLORIDE 0.9% FLUSH 10 ML FLUSH IV FLUSH SCH (09:00)
[2017-02-16 09:01] LABS: AUTOMATED NEUTROPHIL # 3.3 TH/MM3 (1.8-7.7); BASOPHIL # 0.1 TH/MM3 (0-0.2); BASOPHIL % 0.7 % (0.0-2.0); EOSINOPHIL # 0.2 TH/MM3 (0-0.4); EOSINOPHIL % 2.3 % (0.0-4.0); HEMATOCRIT 35.5 % (39.0-51.0); LYMPH % 43.9 % (9.0-44.0); LYMPHOCYTE # 3.2 TH/MM3 (1.0-4.8); MEAN CELL VOLUME 72.5 FL (80.0-100.0); MEAN CORPUSCULAR HEMOGLOBIN 23.1 PG (27.0-34.0); MEAN CORPUSCULAR HGB CONC 31.8 % (32.0-36.0); MONO % 7.2 % (0.0-8.0); NEUT % 45.9 % (16.0-70.0); PLATELET COUNT 239 TH/MM3 (150-450); RED CELL DISTRIBUTION WIDTH 16.3 % (11.6-17.2); WHITE BLOOD COUNT 7.2 TH/MM3 (4.0-11.0)
[2017-02-16 09:02] LABS: BICARBONATE 24.1 MEQ/L (21.0-32.0); POTASSIUM 3.6 MEQ/L (3.5-5.1)
[2017-02-16 09:03] LABS: HEMO FLAGS AUTO DIFF
[2017-02-16 09:49] LABS: ACANTHOCYTES OCC (NORMAL); PLATELET ESTIMATE SMEAR NORMAL (NORMAL); PLATELET MORPHOLOGY ENLARGED (NORMAL); SCAN/DIFF AUTO DIFF CONFIRMED
[2017-02-16] MEDS: cloNIDine HCL 0.1 MG TAB PO PRN (11:16)
[2017-02-16] MEDS: DOCUSATE SODIUM 100 MG CAP PO SCH (11:17)
[2017-02-16] MEDS: BISACODYL EC 5 MG TABEC PO SCH (11:17)
[2017-02-16] MEDS: POLYETHYLENE GLYCOL 17 GM PKG PO SCH (11:17)
[2017-02-16 11:33] VITALS: BP 156/103; PULSE 82; RESP 17; TEMP 96.9; O2SAT 100
[2017-02-16] MEDS ORDERED: INSULIN DETEMIR 100 UNITS/ML VIAL SQ SCH (21:00)
--- NOTE | 2017-02-17 09:17 | HHI.DS ---
Discharge Summary Admission Date Feb 13, 2017 at 03:53 Discharge Date: February 16, 2017 Admitting Diagnosis medial malleolus fracture with widened mortise and distal fibular fr (1) Ankle fracture ICD Code: S82.899A (2) Dehydration ICD Code: E86.0 (3) Hypokalemia ICD Code: E87.6 (4) Hyperglycemia ICD Code: R73.9 (5) Leukocytosis ICD Code: D72.829 (6) Tobacco abuse ICD Code: Z72.0 Procedures ORIF left ankle fx Brief History - From Admission This is a 36-year-old male with a PMH of Asthma and DM who presented to the ER w / complaints of left ankle pain after playing football. Per pt he was playing football with friends, went to catch the ball and when he landed, rolled his left ankle. Unable to bare weight. No head trauma or LOC reported. On arrival , BP 163/103, HR 93, O2 sat 96% on RA, Afebrile. WBC 12.9. K+ 3.4. GFR 86. BS 241. INR 1.0. UA negative. Hand X-ray intact. Ankle X-ray laterally displaced bimalleolar fractures with lateral subluxation of the tibiotalar joint. Dr. Zarate consulted by ER physician, plan is for surgical intervention. CBC/BMP: 02/16/17 0736 02/16/17 0736 Significant Findings Laboratory Tests Test 02/15/17 02/16/17 05:55 07:36 White Blood Count 11.8 TH/MM3 (4.0-11.0) Hemoglobin 11.3 GM/DL 11.3 GM/DL (13.0-17.0) (13.0-17.0) Hematocrit 36.1 % 35.5 % (39.0-51.0) (39.0-51.0) Mean Corpuscular Volume 71.3 FL 72.5 FL (80.0-100.0) (80.0-100.0) Mean Corpuscular Hemoglobin 22.2 PG 23.1 PG (27.0-34.0) (27.0-34.0) Mean Corpuscular Hemoglobin 31.2 % 31.8 % Concent (32.0-36.0) (32.0-36.0) Neutrophils % (Manual) 72 % (16-70) Neutrophils # (Manual) 8.9 TH/MM3 (1.8-7.7) Random Glucose 260 MG/DL 185 MG/DL (74-106) (74-106) Albumin 3.2 GM/DL (3.4-5.0) Platelet Morphology Comment ENLARGED (NORMAL) Imaging Last Impressions Ankle X-Ray 02/14/17 0000 Signed Impressions: Service Date/Time: Tuesday, February 14, 2017 12:59 - CONCLUSION: Intraoperative spot images showing distal tibia and fibula hardware. Prabhjot Franklin MD Hand X-Ray 02/12/17 2244 Signed Impressions: Service Date/Time: Sunday, February 12, 2017 23:01 - CONCLUSION: Intact left hand. Gregor Everett MD PE at Discharge GENERAL: patient sitting up on edge of bed. Appears comfortable. Alert and oriented 3. SKIN: Warm and dry. HEAD: Normocephalic. EYES: No scleral icterus. No injection or drainage. NECK: Supple, trachea midline. No JVD. CARDIOVASCULAR: Regular rate and rhythm without murmurs, gallops, or rubs. RESPIRATORY: Breath sounds equal bilaterally. No accessory muscle use. GASTROINTESTINAL: Abdomen soft, non-tender, nondistended. MUSCULOSKELETAL: No cyanosis, or edema. left postoperative foot not examined. Peripheral profusion intact. BACK: Nontender without obvious deformity. No CVA tenderness. Pt update on day of discharge patient says he is feeling well. Says he feels comfortable managing his insulin. denies any chest pain or shortness breath. He does have bilateral underarm pain exacerbated by crutches. Instructed on correct use. discussed insulin sliding scale with patient, discussed with diabetes educator. Hospital Course patient underwent ORIF for left ankle fracture. Patient experienced minimal complications, with the exception of uncontrolled diabetes, A1c 11.6. he reports that he has had polyuria for about a year. during hospitalization, glucose initially quite elevated, however Patient was controlled with insulin sliding scale, and will be placed on insulin sliding scale as well as long- acting insulin at discharge. He met with diabetes educator, and feels comfortable managing at home. He has multiple family members with diabetes, for problem-based summary from most recent progress note, please see below. //postop ORIF 02/14 for leftAnkle Fx: - s/p injury while playing football, Ankle X-ray w/ laterally displaced bimalleolar fracture with lateral subluxation of the tibiotalar joint, images reviewed by me. Dr. Zarate consulted by ER physician, plan is for surgical intervention. NPO, IVF, analgesics/antiemetics as needed. -f/u ortho as outpt. //Hypokalemia: Resolved after replacement. Monitor. //diabetes mellitus. Hemoglobin A1c 11.6. //Hyperglycemia: BS 241. h/o DM. Sliding scale w/ Accu-Cheks, check Hgb A1c. -Diabetic diet. await cosmetology educator. Insulin sliding scale. -c/s cm for home DM supplies, f/u PCP. - Continue to monitor blood glucose. //Leukocytosis: WBC 12.9. No signs of infection, afebrile. Likely secondary to acute injury. improving. no sogns of infection.. //Tobacco Abuse: Pt counselled. NicoDerm prn if needed. //DVT Prophylaxis: Anticoagulation post op per Ortho Discharge Planning Blood sugars still elevated, need to keep for better post-surgical control, education, as pt will need to go home on insulin Pt Condition on Discharge: Good Discharge Disposition: Discharge Home Discharge Time: > 30 minutes Discharge Instructions DIET: Follow Instructions for: Diabetic Diet Activities you can perform: Toe Touch Weight Bearing Follow up Referrals: Orthopedics - [facility] Weeks [facility] with Froilan Zarate Jr., MD PCP Follow-up @ [facility], with jules mccoy Medications: Blood Glucose Monitoring W/Device (Glucocom Blood Glucose Mo W/Device) 1 Kit Kit 1 KIT .ROUTE DIRECTED Blood Sugar Management #1 KIT Glucocom Test Strips (Glucocom Test Strips) 1 Dary Dary 1 EA .ROUTE DIRECTED Blood Sugar Management #1 BOX Insulin Aspart Inj (Novolog Inj) 1,000 Unit/10 Ml Vial 1-9 UNITS SQ ACHS Max dose at bedtime:( )units; sugars less than 70,(0)units; sugars 150-199,(1) unit; sugars 200-249,(3) units; sugars 250-299,(5) units; sugars 300-349,(7) units; sugars greater than 349,(9) units Blood Sugar Management #10 Ref 0 ML Insulin Detemir Inj (Levemir Inj) 1,000 unit/ 10 ML Vial 10 UNITS SQ HS Do not mix with any other Insulin. Blood Sugar Management #1 Ref 0 VIAL Insulin Syringe/U-100/31G X 5/16" 1 ml (Insulin Syringe/U-100/31G X 5/16" 1 ml) 1 Mis Mis 1 EA .ROUTE DIRECTED Blood Sugar Management #1 Ref 0 BOX Lancets (Lancets) 1 Mis Mis 1 EA .ROUTE DIRECTED Blood Sugar Management #1 Ref 0 BOX Oxycodone-Acetaminophen (Percocet) 5-325 mg Tab 1 TAB PO Q4H PRN PAIN #60 Ref 0 TAB Pankaj Borja MD February 17, 2017 09:17
== END 2017-02-16 13:46 | disposition home or self-care (01) | DRG 494 ==
LOC: NEPD 21:21 → NEDA 02-13 03:53 → N06B 02-13 04:44
PROVIDERS: ADMIT Internal Medicine; ATTEND Internal Medicine
PROC: 0QSK04Z Reposition Left Fibula with Internal Fixation Device, Open Approach (ICD-10-PCS; 2017-02-14)
PROC: 0QSH04Z Reposition Left Tibia with Internal Fixation Device, Open Approach (ICD-10-PCS; principal; 2017-02-14 11:34)
DX: S82.842A Displaced bimalleolar fracture of left lower leg, initial encounter for closed fracture (principal); E11.65 Type 2 diabetes mellitus with hyperglycemia; S93.02XA Subluxation of left ankle joint, initial encounter; S63.92XA Sprain of unspecified part of left wrist and hand, initial encounter; E86.0 Dehydration; E87.6 Hypokalemia; J45.909 Unspecified asthma, uncomplicated; Z83.3 Family history of diabetes mellitus; D72.829 Elevated white blood cell count, unspecified; W01.0XXA Fall on same level from slipping, tripping and stumbling without subsequent striking against object, initial encounter; Y93.61 Activity, american tackle football; Y92.9 Unspecified place or not applicable; Y99.9 Unspecified external cause status; Z72.0 Tobacco use
CPT/HCPCS: 73130; 73610; 76000; 80048; 80053; 80069; 81001; 82948; 83036; 83735; 85007; 85025; 85027; 85610; 85730; 86850; 86900; 86901; 94150; 96374; 96375; 96376; C1713; E0113; J0131; J0690; J1170; J1580; J1650; J1815; J1885; J2175; J2250; J2270; J2405; J2710; J3010; J3370; J7030; J7120

== ENCOUNTER 2017-03-30 10:26 | Emergency (ER) | payer SELFPAY ==
[~2017-03-30] VITALS: Ht 188 cm; Wt 86.0 kg
[~2017-03-30 10:26] MED LIST changes: +GLUCKIT15; +GLUCTES12; +INSU1MIS15; +LANCETS1 MI1; +LEVEMIR SQ; -NAPR550 PO; +NOVOLOGP2 SQ; +PERC5TAB12 PO; -Z.0.NO CURRENT MEDS
[2017-03-30 10:27] VITALS: BP 163/92; PULSE 98; RESP 20; TEMP 98.5; O2SAT 97
--- NOTE | 2017-03-30 10:41 | PD ---
HPI Chief Complaint: Injury Time Seen by Provider: 10:39 Travel History International Travel<30 days: No Contact w/Intl Traveler<30days: No Traveled to known affect area: No History of Present Illness HPI 36-year-old Afro-[place] male presents the emergency department status post open reduction and fixation left ankle for bimalleolar fracture. Patient was seen today by Dr. De Anda, and is here for fitting of a cam walker boot. Patient had his cast removed by Dr. De Anda today. He is currently on crutches. He is also requesting a note to return to work with restrictions today. He has no other complaints. He has no known drug allergies. PFSH Past Medical History Asthma: Yes Cancer: No Cardiovascular Problems: No Diabetes: Yes Diminished Hearing: No GERD: Yes (TAKE TUMS) Genitourinary: No Musculoskeletal: No Neurologic: No Reproductive: No Respiratory: No Past Surgical History Abdominal Surgery: Yes (APPENDECTOMY) Cardiac Surgery: No Ear Surgery: No Endocrine Surgery: No Eye Surgery: No Genitourinary Surgery: No Gynecologic Surgery: No Oral Surgery: No Thoracic Surgery: No Social History Alcohol Use: Yes (RARE) Tobacco Use: Yes (1/2PPD) Substance Use: No Allergies-Medications (Allergen,Severity, Reaction): Coded Allergies: No Known Allergies (Verified , 02/12/17) Reported Meds & Prescriptions Reported Meds & Active Scripts Active Novolog Inj (Insulin Aspart) 1,000 Unit/10 Ml Vial 1-9 Units SQ ACHS Max dose at bedtime:( )units; sugars less than 70,(0)units; sugars 150-199,(1) unit; sugars 200-249,(3) units; sugars 250-299,(5) units; sugars 300-349,(7) units; sugars greater than 349,(9) units Levemir Inj (Insulin Detemir) 1,000 unit/ 10 ML Vial 10 Units SQ HS Do not mix with any other Insulin. Glucocom Test Strips (Blood Glucose Test Strips) 1 Dary Dary 1 Ea .ROUTE DIRECTED Lancets 1 Mis Mis 1 Ea .ROUTE DIRECTED Insulin Syringe/U-100/31G X 5/16" 1 ml 1 Mis Mis 1 Ea .ROUTE DIRECTED Glucocom Blood Glucose Mo W/Device (Device) 1 Kit Kit 1 Kit .ROUTE DIRECTED Percocet (Oxycodone-Acetaminophen) 5-325 mg Tab 1 Tab PO Q4H PRN Review of Systems Except as stated in HPI: all other systems reviewed are Neg General / Constitutional: No: Fever Eyes: No: Visual changes HENT: No: Headaches Cardiovascular: No: Chest Pain or Discomfort Respiratory: No: Shortness of Breath Gastrointestinal: No: Abdominal Pain Genitourinary: No: Dysuria Musculoskeletal: No: Pain Skin: No Rash Neurologic: No: Weakness Psychiatric: No: Depression Endocrine: No: Polydipsia Hematologic/Lymphatic: No: Easy Bruising Physical Exam Narrative GENERAL: Patient is in no acute distress. SKIN: Warm and dry. Normal color. Normal turgor. There is a well-healed incision site to the left lateral lower leg and ankle with Steri-Strips in place. HEAD: Atraumatic. Normocephalic. EYES: Pupils equal and round. No scleral icterus. No injection or drainage. ENT: No nasal bleeding or discharge. Mucous membranes pink and moist. NECK: Trachea midline. Supple. CARDIOVASCULAR: Regular rate and rhythm. RESPIRATORY: No accessory muscle use. Clear to auscultation. Breath sounds equal bilaterally. MUSCULOSKELETAL: Extremities without clubbing, cyanosis, or edema. No obvious deformities. Left ankle is somewhat swollen with stiffness present consistent with history. NEUROLOGICAL: Awake and alert. No obvious cranial nerve deficits. Motor grossly within normal limits. Five out of 5 muscle strength in the arms and legs. Normal speech. PSYCHIATRIC: Appropriate mood and affect; insight and judgment normal. Data Data Last Documented VS Vital Signs Date Time Temp Pulse Resp B/P Pulse Ox O2 Delivery O2 Flow Rate FiO2 03/30/17 10:27 98.5 98 20 163/92 97 Orders Boot Fracture (03/30/17 ) [facility] Medical Decision Making Medical Screen Exam Complete: Yes Emergency Medical Condition: Yes Medical Record Reviewed: Yes Differential Diagnosis Left bimalleolar ankle fracture. History of ORIF. Need for Cam Walker boot. Narrative Course Patient is medically stable at time of exam. Cam Walker boot is placed by [employer]. Patient is given a note to return to work with restrictions until fully cleared by orthopedist. Patient follow with Dr. De Anda's office as scheduled or sooner when necessary. Diagnosis Primary Impression: Ankle fracture Qualified Code: S82.892D - Ankle fracture, left, closed, with routine healing , subsequent encounter Referrals: Froilan Zarate Jr., MD Patient Instructions: General Instructions, Splint Care (DC) Departure Forms: Work Release Enter return to work date: Mar 31, 2017 Special Instructions: Patient can return to work with limited use of left foot secondary to previous fracture. Patient must wear cam walker boot and crutches as needed. Patient cannot fully return to work until cleared by orthopedist. Additional Instructions: Cam Walker boot is placed by [employer]. Patient is given a note to return to work with restrictions until fully cleared by orthopedist. Patient follow with Dr. De Anda's office as scheduled or sooner when necessary. Disposition: 01 DISCHARGE HOME Condition: Stable Librado Nava Mar 30, 2017 10:41
== END 2017-03-30 11:16 | disposition home or self-care (01) ==
LOC: NEPK 10:26
DX: S82.892D Other fracture of left lower leg, subsequent encounter for closed fracture with routine healing (principal); Z46.89 Encounter for fitting and adjustment of other specified devices; X58.XXXD Exposure to other specified factors, subsequent encounter; J45.909 Unspecified asthma, uncomplicated; E11.9 Type 2 diabetes mellitus without complications; F17.210 Nicotine dependence, cigarettes, uncomplicated
CPT/HCPCS: 99283; L2114

== ENCOUNTER 2017-04-27 13:01 | Emergency (ER) | payer SELFPAY ==
[~2017-04-27] VITALS: Ht 188 cm; Wt 85.0 kg
[~2017-04-27 13:01] MED LIST changes: -GLUCKIT15; -GLUCTES12; -INSU1MIS15; -LANCETS1 MI1
[2017-04-27 13:03] VITALS: BP 153/100; PULSE 86; RESP 18; TEMP 98.5; O2SAT 100
--- NOTE | 2017-04-27 13:08 | PD ---
Physical Exam Time Seen by Provider: 13:05 Narrative 36 y/o male here for evaluation of L foot pain when walking today; he reports that he stepped awkwardly. Walking in a walking boot due to recent bimalleolar fx. Vital signs reviewed. Seen at triage desk. Awaiting bed placement. Data Data Last Documented VS Vital Signs Date Time Temp Pulse Resp B/P Pulse Ox O2 Delivery O2 Flow Rate FiO2 04/27/17 13:03 98.5 86 18 153/100 100 Room Air [facility] Medical Record Reviewed: Yes Supervised Visit with MARYCRUZ: Sagar Schuster Apr 27, 2017 13:07
--- NOTE | 2017-04-27 14:52 | PD ---
HPI Chief Complaint: Injury Time Seen by Provider: 14:46 Travel History International Travel<30 days: No Contact w/Intl Traveler<30days: No Traveled to known affect area: No History of Present Illness HPI 36-year-old Afro-[place] male with history of type 1 diabetes presents the emergency department with history of bimalleolar fracture to the right foot requiring surgery. Patient states he was attempting to walk last night without the walking boot when he stepped wrong and felt pain in the area where the plate was placed previously. Patient is also been out of his insulin, test strips, syringes, for approximately 2 weeks. He is requesting a refill of all those. He normally takes NovoLog 3 times a day as well as Levemir 10 units at night. He is requesting an x-ray of the left foot to ensure no damage was done by stepping wrong last night. Currently his pain is about a 3 out of 10. He has no known drug allergies. Serum glucoses checked in the room was found to be 208. PFSH Past Medical History Asthma: Yes Cancer: No Cardiovascular Problems: No Diabetes: Yes Patient Takes Glucophage: No Diminished Hearing: No GERD: Yes Genitourinary: No Musculoskeletal: No Neurologic: No Reproductive: No Respiratory: No Tetanus Vaccination: < 5 Years Influenza Vaccination: No ?: Not Past Surgical History Abdominal Surgery: Yes (APPENDECTOMY) Appendectomy: Yes Cardiac Surgery: No Ear Surgery: No Endocrine Surgery: No Eye Surgery: No Genitourinary Surgery: No Gynecologic Surgery: No Oral Surgery: No Thoracic Surgery: No Social History Alcohol Use: Yes (OCC) Tobacco Use: Yes (1/2PPD) Substance Use: No Allergies-Medications (Allergen,Severity, Reaction): Coded Allergies: No Known Allergies (Verified , 02/12/17) Reported Meds & Prescriptions Reported Meds & Active Scripts Active Blood Glucose Test Strips Strips Strip 1 Box .ROUTE DIRECTED Easy Comfort Pen [place] 31G X 6 mm (Insulin Pen Needle/Easy Comfort 31G X 6mm) 1 Mis Mis 1 Box .ROUTE DIRECTED Novolog Inj (Insulin Aspart) 1,000 Unit/10 Ml Vial 1-9 Units SQ ACHS Max dose at bedtime:( )units; sugars less than 70,(0)units; sugars 150-199,(1) unit; sugars 200-249,(3) units; sugars 250-299,(5) units; sugars 300-349,(7) units; sugars greater than 349,(9) units Levemir Inj (Insulin Detemir) 1,000 unit/ 10 ML Vial 10 Units SQ HS Do not mix with any other Insulin. Review of Systems Except as stated in HPI: all other systems reviewed are Neg General / Constitutional: No: Fever Eyes: No: Visual changes HENT: No: Headaches Cardiovascular: No: Chest Pain or Discomfort Respiratory: No: Shortness of Breath Gastrointestinal: No: Abdominal Pain Genitourinary: No: Dysuria Musculoskeletal: Positive: Arthralgias, Limited ROM, Pain Skin: No Rash Neurologic: No: Weakness Psychiatric: No: Depression Endocrine: No: Polydipsia Hematologic/Lymphatic: No: Easy Bruising Physical Exam Narrative GENERAL: Patient appears in mild distress. SKIN: Warm and dry. Normal color. Normal turgor. Well healed incision site to the left foot. HEAD: Atraumatic. Normocephalic. EYES: Pupils equal and round. No scleral icterus. No injection or drainage. ENT: No nasal bleeding or discharge. Mucous membranes pink and moist. Pharynx is clear. Airway is patent. NECK: Trachea midline. Supple and nontender. CARDIOVASCULAR: Regular rate and rhythm. RESPIRATORY: No accessory muscle use. Clear to auscultation. Breath sounds equal bilaterally. MUSCULOSKELETAL: Extremities without clubbing, cyanosis, or edema. No obvious deformities. Patient has tenderness and stiffness to the left foot consistent with his previous injuries. There do not appear to be any acute problems. NEUROLOGICAL: Awake and alert. No obvious cranial nerve deficits. Motor grossly within normal limits. Five out of 5 muscle strength in the arms and legs. Normal speech. PSYCHIATRIC: Appropriate mood and affect; insight and judgment normal. Data Data Last Documented VS Vital Signs Date Time Temp Pulse Resp B/P Pulse Ox O2 Delivery O2 Flow Rate FiO2 04/27/17 13:03 98.5 86 18 153/100 100 Room Air Orders Ankle, Complete ([id number]) (04/27/17 14:52) [facility] Medical Decision Making Medical Screen Exam Complete: Yes Emergency Medical Condition: Yes Differential Diagnosis Left foot pain. History bimalleolar fracture. History ORIF. Type 1 diabetes in need of supplies and refills. Narrative Course Patient is medically stable at time of exam. X-ray of the left ankle is obtained. X-ray shows no acute findings suggestive of failure of hardware or recurrent fracture. This is per radiologist. Patient is to continue his walking boot as previously prescribed. Patient is given refills of his NovoLog, Levemir, syringes with needles, and test strips. Patient is to follow-up with primary care physician for further prescription refills. Patient follow-up with the orthopedic as previously scheduled. Diagnosis Primary Impression: Ankle fracture Qualified Code: S82.892D - Ankle fracture, left, closed, with routine healing , subsequent encounter Additional Impression: Uncontrolled diabetes mellitus Qualified Code: E10.65 - Uncontrolled type 1 diabetes mellitus without complication Referrals: [facility] Orthopedist Additional Instructions: X-ray shows no acute findings suggestive of failure of hardware or recurrent fracture. This is per radiologist. Patient is to continue his walking boot as previously prescribed. Patient is given refills of his NovoLog, Levemir, syringes with needles, and test strips. Patient is to follow-up with primary care physician for further prescription refills. Patient follow-up with the orthopedic as previously scheduled. Scripts Blood Glucose Test Strips Strips Strip #1 BOX .ROUTE DIRECTED Ref 5 Prov:Ike Arroyo MD 04/27/17 Insulin Pen Needle/Easy Comfort 31G X 6mm (Easy Comfort Pen [place] 31G X 6 mm) 1 Mis Mis #1 BOX .ROUTE DIRECTED Ref 5 Prov:Ike Arroyo MD 04/27/17 Insulin Aspart Inj (Novolog Inj)1,000 Unit/10 Ml Vial1-9 Units SQ ACHS #10 ML Ref 0 Max dose at bedtime:( )units; sugars less than 70,(0)units; sugars 150-199,(1) unit; sugars 200-249,(3) units; sugars 250-299,(5) units; sugars 300-349,(7) units; sugars greater than 349,(9) units Prov:Ike Arroyo MD 04/27/17 Insulin Detemir Inj (Levemir Inj)1,000 unit/ 10 ML Vial10 Units SQ HS #1 VIAL Ref 0 Do not mix with any other Insulin. Prov:Ike Arroyo MD 04/27/17 Disposition: 01 DISCHARGE HOME Condition: Stable Librado Nava Apr 27, 2017 14:52
[2017-04-27] MEDS ORDERED: INSU-126 (14:55)
[2017-04-27] MEDS ORDERED: NOVOLOGP2 SQ (14:55)
[2017-04-27] MEDS ORDERED: LEVEMIR SQ (14:55)
[2017-04-27] MEDS ORDERED: BLOOD GLUCOSE T1 TES (14:55)
--- NOTE | 2017-04-27 15:32 | RADRPT ---
EXAM DATE/TIME: 04/27/2017 15:09 [place] COMPARISON: ANKLE LEFT COMPLETE ([id number]), February 12, 2017, 23:02. ANKLE LEFT COMPLETE ([id number]), February 14, 2017, 12:59. INDICATIONS : Left lateral ankle pain. Stepping injury while not wearing brace. MEDICAL HISTORY : None. SURGICAL HISTORY : Left ankle ORIF. ENCOUNTER: Subsequent ACUITY: 1 day PAIN SCORE: 6/10 LOCATION: Left lateral ankle FINDINGS: Side plate and multiple screws traverse the fibula with excellent anatomical alignment of the fractur e fragments with 2 screws traversing the medial malleolus and fracture sites have not healed, however overlying. There is a tiny avulsion coming off the most volar aspect of the cuboid not identified pr eviously. CONCLUSION: Tiny avulsion coming off the cuboid not present previously. Leandra Cruz MD on April 27, 2017 at 15:29 Board Certified Radiologist. This report was verified electronically.
== END 2017-04-27 15:38 | disposition home or self-care (01) ==
LOC: NEPK 13:01
DX: S82.842D Displaced bimalleolar fracture of left lower leg, subsequent encounter for closed fracture with routine healing (principal); X58.XXXD Exposure to other specified factors, subsequent encounter; E10.65 Type 1 diabetes mellitus with hyperglycemia; Z79.4 Long term (current) use of insulin
CPT/HCPCS: 73610; 99283

== ENCOUNTER 2017-11-25 11:51 | Emergency (ER) | payer SELFPAY ==
[~2017-11-25] VITALS: Ht 188 cm; Wt 90.0 kg
[~2017-11-25 11:51] MED LIST changes: +BLOOD GLUCOSE T1 TES; +INSU-126; -PERC5TAB12 PO
[2017-11-25 11:53] VITALS: BP 155/85; PULSE 108; RESP 18; TEMP 97.8; O2SAT 97
[2017-11-25] MEDS ORDERED: SODIUM CHLOR 0.9% 1000 ML INJ 1,000 ML IV ONE (13:15)
--- NOTE | 2017-11-25 13:17 | PD ---
HPI Chief Complaint: Cold / Flu Symptoms Time Seen by Provider: 13:01 Travel History International Travel<30 days: No Contact w/Intl Traveler<30days: No Traveled to known affect area: No History of Present Illness HPI This is a 37-year-old male who presents to the emergency department with dizziness that has been going on for 3 days, constant, moderate severity, worse when he gets up from sitting to standing associated with nonproductive cough, rhinorrhea and flulike symptoms with myalgias and fevers. Every time he gets dizzy if feels like he is going to pass out. He has been told that he has diabetes and he supposed to be on insulin but he can afford it so he does not take it. PFSH Past Medical History Asthma: Yes Cancer: No Cardiovascular Problems: No Diabetes: Yes Diminished Hearing: No GERD: Yes Genitourinary: No Musculoskeletal: No Neurologic: No Reproductive: No Respiratory: No Past Surgical History Abdominal Surgery: Yes (APPENDECTOMY) Appendectomy: Yes Cardiac Surgery: No Ear Surgery: No Endocrine Surgery: No Eye Surgery: No Genitourinary Surgery: No Gynecologic Surgery: No Oral Surgery: No Thoracic Surgery: No Social History Alcohol Use: Yes (OCC) Tobacco Use: Yes (1/2PPD) Substance Use: No Allergies-Medications (Allergen,Severity, Reaction): Coded Allergies: No Known Allergies (Verified , 02/12/17) Reported Meds & Prescriptions Reported Meds & Active Scripts Active Easy Comfort Pen [place] 31G X 6 mm (Insulin Pen Needle/Easy Comfort 31G X 6mm) 1 Mis Mis 1 Box .ROUTE DIRECTED Novolog Inj (Insulin Aspart) 1,000 Unit/10 Ml Vial 1-9 Units SQ ACHS Max dose at bedtime:( )units; sugars less than 70,(0)units; sugars 150-199,(1) unit; sugars 200-249,(3) units; sugars 250-299,(5) units; sugars 300-349,(7) units; sugars greater than 349,(9) units Levemir Inj (Insulin Detemir) 1,000 unit/ 10 ML Vial 10 Units SQ HS Do not mix with any other Insulin. Review of Systems Except as stated in HPI: all other systems reviewed are Neg Physical Exam Narrative GENERAL:Well appearing, no acute distress SKIN: Focused skin assessment warm and dry. HEAD: Atraumatic. Normocephalic. EYES: Pupils equal and round. No injection or drainage. ENT: Rhinorrhea present.No posterior pharyngeal erythema or exudates. NECK: Trachea midline. CARDIOVASCULAR: Regular rate and rhythm. No murmur appreciated. RESPIRATORY: Clear to auscultation. Breath sounds equal bilaterally. GASTROINTESTINAL: Abdomen soft, non-tender, nondistended. MUSCULOSKELETAL: No obvious deformities. NEUROLOGICAL: Awake and alert. No obvious cranial nerve deficits. Moving all extremities. PSYCHIATRIC: Appropriate mood and affect; insight and judgment normal. Data Data Last Documented VS Vital Signs Date Time Temp Pulse Resp B/P (MAP) Pulse Ox O2 Delivery O2 Flow Rate FiO2 11/25/17 14:04 88 24 129/79 (96) 98 Room Air 11/25/17 11:53 97.8 Orders Orders Influenzae A/B Antigen (11/25/17 12:07) Complete Blood Count With Diff (11/25/17 13:10) Comprehensive Metabolic Panel (11/25/17 13:10) ^ Insert Iv (11/25/17 13:10) Sodium Chlor 0.9% 1000 Ml Inj (Ns 1000 M (11/25/17 13:15) Electrocardiogram (11/25/17 ) Labs Laboratory Tests Test 11/25/17 13:55 White Blood Count 8.7 TH/MM3 Red Blood Count 5.78 MIL/MM3 Hemoglobin 13.4 GM/DL Hematocrit 40.9 % Mean Corpuscular Volume 70.8 FL Mean Corpuscular Hemoglobin 23.1 PG Mean Corpuscular Hemoglobin Concent 32.7 % Red Cell Distribution Width 16.3 % Platelet Count 420 TH/MM3 Mean Platelet Volume 8.7 FL Neutrophils (%) (Auto) 59.9 % Lymphocytes (%) (Auto) 28.4 % Monocytes (%) (Auto) 9.1 % Eosinophils (%) (Auto) 1.8 % Basophils (%) (Auto) 0.8 % Neutrophils # (Auto) 5.2 TH/MM3 Lymphocytes # (Auto) 2.5 TH/MM3 Monocytes # (Auto) 0.8 TH/MM3 Eosinophils # (Auto) 0.2 TH/MM3 Basophils # (Auto) 0.1 TH/MM3 CBC Comment DIFF FINAL Differential Comment Blood Urea Nitrogen 15 MG/DL Creatinine 1.14 MG/DL Random Glucose 269 MG/DL Total Protein 7.7 GM/DL Albumin 3.6 GM/DL Calcium Level 8.9 MG/DL Alkaline Phosphatase 147 U/L Aspartate Amino Transf (AST/SGOT) 25 U/L Alanine Aminotransferase (ALT/SGPT) 31 U/L Total Bilirubin 0.4 MG/DL Sodium Level 138 MEQ/L Potassium Level 4.1 MEQ/L Chloride Level 106 MEQ/L Carbon Dioxide Level 24.9 MEQ/L Anion Gap 7 MEQ/L Estimat Glomerular Filtration Rate 87 ML/MIN MDM Medical Decision Making Medical Screen Exam Complete: Yes Emergency Medical Condition: Yes Interpretation(s) Afebrile, tachycardic, hypertensive No leukocytosis Electrolytes are reassuring Mild hyperglycemia EKG: Normal sinus rhythm with no ST changes Differential Diagnosis Arrhythmia, dehydration, hyperglycemia, electrolyte abnormality Narrative Course This is a 37-year-old male who presents to the emergency department with fatigue , dizziness and flulike symptoms. The patient is well-appearing on exam. Influenza is negative. Labs are reassuring. He does have a blood sugar of 269. He has been told in the past he needs insulin. At this time he has no anion gap so I suspect this may be type 2 diabetes and he may benefit from metformin. I suspect his symptoms are secondary to dehydration and some orthostatic hypotension due to his viral illness. Patient will be discharged home with metformin and instructions to increase his oral hydration. He was given a referral to [facility]. Diagnosis Primary Impression: Dehydration Additional Impression: Viral syndrome Patient Instructions: General Instructions Additional Instructions: If you develop severe chest pain, shortness of breath, sweating, lightheadedness , dizziness or difficulty breathing return to the emergency department immediately. Followup with your primary care physician in 2-3 days if your symptoms are not resolved. Med/Other Pt SpecificInfo: Prescription(s) given Scripts Metformin (Metformin) 500 Mg Tab 500 MG PO BIDPC for Blood Sugar Management, #60 TAB 0 Refills Prov: Nereyda Montague MD 11/25/17 Disposition: DISCHARGE HOME Condition: Stable Nereyda Montague MD Nov 25, 2017 13:17
[2017-11-25 14:04] VITALS: BP 129/79; PULSE 88; RESP 24; O2SAT 98
[2017-11-25 14:37] LABS: AUTOMATED NEUTROPHIL # 5.2 TH/MM3 (1.8-7.7); BASOPHIL # 0.1 TH/MM3 (0-0.2); BASOPHIL % 0.8 % (0.0-2.0); EOSINOPHIL # 0.2 TH/MM3 (0-0.4); EOSINOPHIL % 1.8 % (0.0-4.0); HEMATOCRIT 40.9 % (39.0-51.0); HEMOGLOBIN 13.4 GM/DL (13.0-17.0); LYMPH % 28.4 % (9.0-44.0); LYMPHOCYTE # 2.5 TH/MM3 (1.0-4.8); MEAN CELL VOLUME 70.8 FL (80.0-100.0); MEAN CORPUSCULAR HEMOGLOBIN 23.1 PG (27.0-34.0); MEAN CORPUSCULAR HGB CONC 32.7 % (32.0-36.0); MEAN PLATELET VOLUME 8.7 FL (7.0-11.0); MONO % 9.1 % (0.0-8.0); MONOCYTE # 0.8 TH/MM3 (0-0.9); NEUT % 59.9 % (16.0-70.0); PLATELET COUNT 420 TH/MM3 (150-450); RED BLOOD COUNT 5.78 MIL/MM3 (4.50-5.90); RED CELL DISTRIBUTION WIDTH 16.3 % (11.6-17.2); WHITE BLOOD COUNT 8.7 TH/MM3 (4.0-11.0)
[2017-11-25 14:55] LABS: ALBUMIN 3.6 GM/DL (3.4-5.0); ALT (GPT) 31 U/L (12-78); AST (GOT) 25 U/L (15-37); BICARBONATE 24.9 MEQ/L (21.0-32.0); BLOOD UREA NITROGEN 15 MG/DL (7-18); CALCIUM 8.9 MG/DL (8.5-10.1); CHLORIDE 106 MEQ/L (98-107); CREATININE 1.14 MG/DL (0.60-1.30); GLOMERULAR FILTRATION RATE 87 ML/MIN (>89); GLUCOSE,RANDOM 269 MG/DL (74-106); SODIUM (NA) 138 MEQ/L (136-145)
[2017-11-25 14:57] LABS: ALKALINE PHOSPHATASE 147 U/L (45-117); TOTAL BILIRUBIN ADULT 0.4 MG/DL (0.2-1.0); TOTAL PROTEIN 7.7 GM/DL (6.4-8.2)
[2017-11-25] MEDS ORDERED: METF500T PO (15:05)
--- NOTE | 2017-11-26 14:27 | EKG ---
Date Performed: 11/25/2017 Time Performed: 14:01:49 PTAGE: 37 years EKG: Sinus rhythm NONSPECIFIC T-WAVE ABNORMALITY BORDERLINE ECG NO PREVIOUS TRACING DOCTOR: Gisselle Bolanos Interpretating Date/Time 11/26/2017 14:25:34
== END 2017-11-25 15:37 | disposition home or self-care (01) ==
LOC: NEPD 11:51
DX: E86.0 Dehydration (principal); B34.9 Viral infection, unspecified; E11.9 Type 2 diabetes mellitus without complications; F17.200 Nicotine dependence, unspecified, uncomplicated; Z79.4 Long term (current) use of insulin
CPT/HCPCS: 80053; 85025; 87804; 93005; 96360; 99284; J7030

== ENCOUNTER 2018-02-28 20:48 | Emergency (ER) | payer SELFPAY ==
[~2018-02-28 20:48] MED LIST changes: -BLOOD GLUCOSE T1 TES; +METF500T PO
[2018-02-28 21:02] VITALS: BP 159/108; PULSE 92; RESP 18; TEMP 98.5; O2SAT 100
[2018-02-28] MEDS ORDERED: diphenhydrAMINE HCL 50 MG/ML VIAL IV PUSH ONE (21:30)
[2018-02-28] MEDS ORDERED: SODIUM CHLOR 0.9% 1000 ML INJ 1,000 ML IV ONE (21:30)
[2018-02-28] MEDS ORDERED: PROCHLORPERAZINE INJ 10 MG/2 ML VIAL IV PUSH ONE (21:30)
[2018-02-28] MEDS ORDERED: LISINOPRIL 10 MG TAB PO ONE (21:30)
--- NOTE | 2018-02-28 21:30 | PD ---
HPI Chief Complaint: Headache Time Seen by Provider: 21:19 Travel History International Travel<30 days: No Contact w/Intl Traveler<30days: No Traveled to known affect area: No History of Present Illness HPI 37-year-old black male with a history of insulin-dependent diabetes and hypertension who is been noncompliant for many months presents today with complaints of headache 1 week. States it has been constant. The intensity has been waxing and waning. He is taken Tylenol [id number] with temporary relief. He has had associated photophobia, nausea, vomiting and general malaise. He does state that he has been eating and drinking a large amount peeing a lot. When I asked to review of systems he does have a positive review of systems. PFSH Past Medical History Narrative Medical IDDM, hypertension, GERD, asthma Asthma: Yes Cancer: No Cardiovascular Problems: No Diabetes: Yes Patient Takes Glucophage: No Diminished Hearing: No GERD: Yes Genitourinary: No Musculoskeletal: No Neurologic: No Reproductive: No Respiratory: No Immunizations Current: Yes Tetanus Vaccination: Unknown Past Surgical History Abdominal Surgery: Yes Appendectomy: Yes Cardiac Surgery: No Ear Surgery: No Endocrine Surgery: No Eye Surgery: No Genitourinary Surgery: No Gynecologic Surgery: No Oral Surgery: No Thoracic Surgery: No Other Surgery: Yes Social History Alcohol Use: Yes (OCC) Tobacco Use: Yes (1/2PPD) Substance Use: No Allergies-Medications (Allergen,Severity, Reaction): Coded Allergies: No Known Allergies (Verified Adverse Reaction, Unknown, 02/28/18) Reported Meds & Prescriptions Reported Meds & Active Scripts Active Metformin (Metformin HCl) 500 Mg Tab 500 Mg PO BIDPC Easy Comfort Pen [place] 31G X 6 mm (Insulin Pen Needle/Easy Comfort 31G X 6mm) 1 Mis Mis 1 Box .ROUTE DIRECTED Novolog Inj (Insulin Aspart) 1,000 Unit/10 Ml Vial 1-9 Units SQ ACHS Max dose at bedtime:( )units; sugars less than 70,(0)units; sugars 150-199,(1) unit; sugars 200-249,(3) units; sugars 250-299,(5) units; sugars 300-349,(7) units; sugars greater than 349,(9) units Levemir Inj (Insulin Detemir) 1,000 unit/ 10 ML Vial 10 Units SQ HS Do not mix with any other Insulin. Review of Systems General / Constitutional: No: Fever Eyes: Positive: Photophobia, No: Blurred Vision, Drainage, Pain, Visual changes HENT: No: Headaches Cardiovascular: No: Chest Pain or Discomfort Respiratory: No: Shortness of Breath Gastrointestinal: Positive: Nausea, Vomiting, No: Abdominal Pain Genitourinary: Positive: Frequency, No: Dysuria Musculoskeletal: No: Pain Skin: No Rash Neurologic: Positive: Headache, No: Weakness, Paresthesia Psychiatric: No: Depression Endocrine: No: Polydipsia Hematologic/Lymphatic: No: Easy Bruising Physical Exam Narrative GENERAL: Well-developed, well-nourished in no apparent distress. Nontoxic appearing. HEAD: Normocephalic, atraumatic. EYES: Pupils equal round and reactive. Extraocular motions intact. No scleral icterus. No injection or drainage. ENT: Nose clear. Throat without erythema, tonsillar hypertrophy or exudate. Uvula midline. Airway patent. NECK: Trachea midline. Supple, nontender, moves head freely. No central bony tenderness or spasm. CARDIOVASCULAR: Regular rate and rhythm without murmurs, gallops, or rubs. RESPIRATORY: Clear to auscultation. Breath sounds equal bilaterally. No wheezes , rales, or rhonchi. GASTROINTESTINAL: Abdomen soft, non-tender, nondistended. No hepato-splenomegaly , or palpable masses. No guarding. EXTREMITIES: No clubbing, cyanosis, or edema. No joint tenderness. BACK: Nontender without deformity. No flank tenderness. NEUROLOGICAL: Awake, alert and oriented x 3 .Cranial nerves grossly intact. Motor and sensory grossly within normal limits. Normal speech. Data Data Last Documented VS Vital Signs Date Time Temp Pulse Resp B/P (MAP) Pulse Ox O2 Delivery O2 Flow Rate FiO2 02/28/18 21:02 98.5 92 18 159/108 (125) 100 Orders Orders Complete Blood Count With Diff (02/28/18 21:24) Basic Metabolic Panel (Bmp) (02/28/18 21:24) Beta Hydroxybutyrate (Acetone) (02/28/18 21:24) Iv Access Insert/Monitor (02/28/18 21:24) Sodium Chlor 0.9% 1000 Ml Inj (Ns 1000 M (02/28/18 21:30) Diphenhydramine Inj (Benadryl Inj) (02/28/18 21:30) Prochlorperazine Inj (Compazine Inj) (02/28/18 21:30) Lisinopril (Prinivil) (02/28/18 21:30) Ed Discharge Order (02/28/18 23:05) Labs Laboratory Tests Test 02/28/18 21:45 White Blood Count 7.5 TH/MM3 Red Blood Count 5.36 MIL/MM3 Hemoglobin 12.3 GM/DL Hematocrit 38.1 % Mean Corpuscular Volume 71.0 FL Mean Corpuscular Hemoglobin 23.0 PG Mean Corpuscular Hemoglobin Concent 32.3 % Red Cell Distribution Width 16.7 % Platelet Count 324 TH/MM3 Mean Platelet Volume 9.3 FL Neutrophils (%) (Auto) 58.3 % Lymphocytes (%) (Auto) 33.4 % Monocytes (%) (Auto) 6.1 % Eosinophils (%) (Auto) 1.5 % Basophils (%) (Auto) 0.7 % Neutrophils # (Auto) 4.3 TH/MM3 Lymphocytes # (Auto) 2.5 TH/MM3 Monocytes # (Auto) 0.5 TH/MM3 Eosinophils # (Auto) 0.1 TH/MM3 Basophils # (Auto) 0.1 TH/MM3 CBC Comment DIFF FINAL Differential Comment Blood Urea Nitrogen 10 MG/DL Creatinine 0.97 MG/DL Random Glucose 215 MG/DL Calcium Level 8.9 MG/DL Sodium Level 137 MEQ/L Potassium Level 3.7 MEQ/L Chloride Level 105 MEQ/L Carbon Dioxide Level 23.5 MEQ/L Anion Gap 9 MEQ/L Estimat Glomerular Filtration Rate 105 ML/MIN B-Hydroxybutyrate 0.13 MMOL/L MDM Medical Decision Making Medical Screen Exam Complete: Yes Emergency Medical Condition: Yes Medical Record Reviewed: Yes Interpretation(s) Laboratory Tests Test 02/28/18 21:45 White Blood Count 7.5 TH/MM3 Red Blood Count 5.36 MIL/MM3 Hemoglobin 12.3 GM/DL Hematocrit 38.1 % Mean Corpuscular Volume 71.0 FL Mean Corpuscular Hemoglobin 23.0 PG Mean Corpuscular Hemoglobin Concent 32.3 % Red Cell Distribution Width 16.7 % Platelet Count 324 TH/MM3 Mean Platelet Volume 9.3 FL Neutrophils (%) (Auto) 58.3 % Lymphocytes (%) (Auto) 33.4 % Monocytes (%) (Auto) 6.1 % Eosinophils (%) (Auto) 1.5 % Basophils (%) (Auto) 0.7 % Neutrophils # (Auto) 4.3 TH/MM3 Lymphocytes # (Auto) 2.5 TH/MM3 Monocytes # (Auto) 0.5 TH/MM3 Eosinophils # (Auto) 0.1 TH/MM3 Basophils # (Auto) 0.1 TH/MM3 CBC Comment DIFF FINAL Differential Comment Blood Urea Nitrogen 10 MG/DL Creatinine 0.97 MG/DL Random Glucose 215 MG/DL Calcium Level 8.9 MG/DL Sodium Level 137 MEQ/L Potassium Level 3.7 MEQ/L Chloride Level 105 MEQ/L Carbon Dioxide Level 23.5 MEQ/L Anion Gap 9 MEQ/L Estimat Glomerular Filtration Rate 105 ML/MIN B-Hydroxybutyrate 0.13 MMOL/L Differential Diagnosis MDM: High Differential diagnoses: Subarachnoid hemorrhage, intracranial bleed, aneurysm, pseudotumor, migraine, cluster headache, atypical migraine, temporal arteritis, connective tissue disorder, hypertension, uncontrolled diabetes Narrative Course IV access is obtained. Patient is given a liter bolus of normal saline. Benadryl 50 mg IV, Compazine 10 mg IV, lisinopril 10 mg p.o. We will check his CBC, chemistry to [facility]. The patient is feeling improved. His laboratory tests have been reviewed. He is medically stable for discharge. Diagnosis Primary Impression: Cephalgia Additional Impression: Uncontrolled diabetes mellitus Referrals: [facility] 2 days Patient Instructions: General Instructions Additional Instructions: Rest. Increase fluids. Metformin. Tylenol and Advil for pain. Follow-up with the [facility] in the next 2 days for recheck. Med/Other Pt SpecificInfo: Prescription(s) given Scripts Metformin (Metformin) 500 Mg Tab 500 MG PO BIDPC for Blood Sugar Management, #60 TAB 0 Refills Prov: Phong Hill MD 02/28/18 Disposition: 01 DISCHARGE HOME Condition: Stable Emanuel Patel February 28, 2018 21:30
[2018-02-28 22:10] LABS: AUTOMATED NEUTROPHIL # 4.3 TH/MM3 (1.8-7.7); BASOPHIL # 0.1 TH/MM3 (0-0.2); BASOPHIL % 0.7 % (0.0-2.0); EOSINOPHIL # 0.1 TH/MM3 (0-0.4); EOSINOPHIL % 1.5 % (0.0-4.0); HEMATOCRIT 38.1 % (39.0-51.0); HEMOGLOBIN 12.3 GM/DL (13.0-17.0); LYMPH % 33.4 % (9.0-44.0); LYMPHOCYTE # 2.5 TH/MM3 (1.0-4.8); MEAN CORPUSCULAR HGB CONC 32.3 % (32.0-36.0); MEAN PLATELET VOLUME 9.3 FL (7.0-11.0); MONO % 6.1 % (0.0-8.0); MONOCYTE # 0.5 TH/MM3 (0-0.9); NEUT % 58.3 % (16.0-70.0); PLATELET COUNT 324 TH/MM3 (150-450); RED BLOOD COUNT 5.36 MIL/MM3 (4.50-5.90); RED CELL DISTRIBUTION WIDTH 16.7 % (11.6-17.2); WHITE BLOOD COUNT 7.5 TH/MM3 (4.0-11.0)
[2018-02-28 23:00] LABS: BICARBONATE 23.5 MEQ/L (21.0-32.0); CALCIUM 8.9 MG/DL (8.5-10.1); CREATININE 0.97 MG/DL (0.60-1.30)
[2018-02-28] MEDS ORDERED: METF500T PO (23:06)
[2018-03-01 00:07] VITALS: BP 156/88
== END 2018-03-01 00:10 | disposition home or self-care (01) ==
LOC: NEPD 20:48
DX: R51 Headache (principal); E11.65 Type 2 diabetes mellitus with hyperglycemia; F17.200 Nicotine dependence, unspecified, uncomplicated; Z79.4 Long term (current) use of insulin
CPT/HCPCS: 80048; 82010; 85025; 96361; 96374; 96375; 99284; J0780; J1200; J7030